=== PATIENT | female | born 1965 | race Caucasian/White ===

== ENCOUNTER 2020-06-10 09:41 | Outpatient (REF) | payer OTHER, SELFPAY ==
[2020-06-10 11:07] LABS: Cholesterol 248 mg/dL; HDL Cholesterol 59 mg/dL; LDL Cholesterol Calculated 155 mg/dl; Triglycerides 172 mg/dL
[2020-06-10 11:19] LABS: Thyroid Stimulating Hormone 0.37 uIU/mL (0.32-4.0)
== END 2020-06-10 09:42 | disposition home or self-care (01) ==
LOC: HO.LAB 09:41
PROVIDERS: PCP Internal Medicine; Visit Provider Internal Medicine
DX: E03.9 Hypothyroidism, unspecified (principal)
CPT/HCPCS: 36415; 80061; 84443

== ENCOUNTER → 2020-09-17 12:55 | Outpatient (BNVA) | payer OTHER, SELFPAY | PROVIDERS: PCP Internal Medicine; Visit Provider Physician Assistant ==

== ENCOUNTER 2020-10-29 09:40 | Day surgery (SDC) | payer BC, SELFPAY ==
[2020-10-22 12:04] VITALS: BMI 31.0
--- NOTE | 2020-10-27 14:32 | P.CONAN_ITS ---
Documented by User: Narcisa Zapien 10/27/20 14:32 HPI - Anesthesia Eval Consult details Narrative: 54yo F for Colonoscopy PMFSH Active Problems Active Problems: All Active Problems (Updated 10/22/20 @ 12:07 by Amrita Sarmiento) Tubular adenoma (Acute) Hyperlipidemia (Acute) Past Medical History Medical History COVID-19 vaccine administered GERD (gastroesophageal reflux disease) History of COVID-19 History of postoperative nausea and vomiting Hyperlipidemia Thyroid disease Tubular adenoma Family History Family History Father Diabetes Mother Pancreatic cancer Brother No problems noted. Son No problems noted. Surgical History Surgical History H/O colonoscopy H/O umbilical hernia repair History of cholecystectomy Social History Social History Household Members: Spouse Household Members Other:: 2 sons- Are you a primary home care physical therapist to a significant other at home: No Do you presently have visiting nurse or other home services: No Alcohol intake: current Alcohol intake frequency: holidays/special occasions only Patient Tobacco Use Status: Former Tobacco user Quit Date: 2000 Tobacco use type: Cigarette Use of substances other than those prescribed or required for medical reasons: No Have you been hit, kicked, punched, or otherwise hurt by someone within the past year? 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 Allergy/AdvReac Type Severity Reaction Status Date / Time Sulfa (Sulfonamide Allergy Severe rash/facial Verified 10/29/20 09:57 Antibiotics) swelling & [SULFA (SULFONAMIDE redness/difficulty ANTIBIOTICS)] breathing Home Medications Medication Instructions Recorded Confirmed Last Taken Type cyclobenzaprine 5 mg tablet 5 mg PO TID PRN 09/17/20 10/22/20 Unknown History Exam Exam Date and Time: October 27, 2020 1432 Height,Weight and Vital Signs: Height 5 ft 7 in Weight 89.811 kg Assessment and Plan Assessment Anesthesia Assessment: Chart Reviewed Documented by User: Moe Deluca 10/29/20 10:21 PMFSH Past Medical History Medical History COVID-19 vaccine administered GERD (gastroesophageal reflux disease) History of COVID-19 History of postoperative nausea and vomiting Hyperlipidemia Thyroid disease Tubular adenoma Family History Family History Father Diabetes Mother Pancreatic cancer Brother No problems noted. Son No problems noted. Surgical History Surgical History H/O colonoscopy H/O umbilical hernia repair History of cholecystectomy Social History Social History Household Members: Spouse Household Members Other:: 2 sons- Are you a primary home care physical therapist to a significant other at home: No Do you presently have visiting nurse or other home services: No Alcohol intake: current Alcohol intake frequency: holidays/special occasions only Patient Tobacco Use Status: Former Tobacco user Quit Date: 2000 Tobacco use type: Cigarette Use of substances other than those prescribed or required for medical reasons: No Have you been hit, kicked, punched, or otherwise hurt by someone within the past year? 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
[2020-10-29 10:14] VITALS: BP 146/91; PULSE 78; RESP 18; TEMP 36.1; O2SAT 97
--- NOTE | 2020-10-29 10:21 | HO.ANESPROP2 ---
FORM[facility]LY [facility] Active Problems Active Problems: All Active Problems (Updated 10/22/20 @ 12:07 by Amrita Sarmiento) Tubular adenoma (Acute) Hyperlipidemia (Acute) Past Medical History Medical History COVID-19 vaccine administered GERD (gastroesophageal reflux disease) History of COVID-19 History of postoperative nausea and vomiting Hyperlipidemia Thyroid disease Tubular adenoma Family History Family History Father Diabetes Mother Pancreatic cancer Brother No problems noted. Son No problems noted. Surgical History Surgical History H/O colonoscopy H/O umbilical hernia repair History of cholecystectomy Social History Social History Household Members: Spouse Household Members Other:: 2 sons- Are you a primary childcare center administrator to a significant other at home: No Do you presently have visiting nurse or other home services: No Alcohol intake: current Alcohol intake frequency: holidays/special occasions only Patient Tobacco Use Status: Former Tobacco user Quit Date: 2000 Tobacco use type: Cigarette Use of substances other than those prescribed or required for medical reasons: No Have you been hit, kicked, punched, or otherwise hurt by someone within the past year? 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 Allergy/AdvReac Type Severity Reaction Status Date / Time Sulfa (Sulfonamide Allergy Severe rash/facial Verified 10/29/20 09:57 Antibiotics) swelling & [SULFA (SULFONAMIDE redness/difficulty ANTIBIOTICS)] breathing Active Medications: Current Medications Generic Name Dose Route Start Last Admin Trade Name Freq PRN Reason Stop Dose Admin Lactated Ringer's 1,000 mls @ 100 mls/hr 10/29/20 10:00 Lr IVCONT .Q10H [facility] Home Medications Medication Instructions Recorded Confirmed Last Taken Type cyclobenzaprine 5 mg tablet 5 mg PO TID PRN 09/17/20 10/22/20 Unknown History Exam Exam Date and Time: October 29, 2020 1021 Height,Weight and Vital Signs: Height 5 ft 7 in Weight 89.811 kg Last Vital Signs Temp 97.0 F 10/29/20 10:14 Pulse 78 10/29/20 10:14 Resp 18 10/29/20 10:14 BP 146/91 H 10/29/20 10:14 Pulse Ox 97 10/29/20 10:14 Airway Mallampati Class: II TM Dist: >3cm Neck ROM: Full
[2020-10-29] MEDS: Lactated Ringers 1,000 ML 100 ML IVCONT (10:25)
--- NOTE | 2020-10-29 10:31 | MHC.SHP ---
Pre-Procedural Eval Section B Chief Complaint: tubular adenoma Relevant Family History (Specify if Yes): No Relevant Social History: None (ex smoker) Present Medications: see Short Stay Collaborative assessment Medical History: Significant History (COVID-19 vaccine administered GERD (gastroesophageal reflux disease) History of COVID-19 History of postoperative nausea and vomiting Hyperlipidemia Thyroid disease Tubular adenoma) History of Previous Operations: Relevant previous surgery/procedure and date(s) (H/O colonoscopy H/O umbilical hernia repair History of cholecystectomy) Allergies: Allergies Allergy/AdvReac Type Severity Reaction Status Date / Time Sulfa (Sulfonamide Allergy Severe rash/facial Verified 10/29/20 09:57 Antibiotics) swelling & [SULFA (SULFONAMIDE redness/difficulty ANTIBIOTICS)] breathing Review of Systems Sugical H&P ROS: Negative: Constitution, Cardiovascular, Respiratory, Neurological, Psychiatric, Hem-Onc, Allergic/Immunologic, Gastrointestinal, Genitourinary, Musculoskeletal, Integumentary, Endocrine and Eyes/Ears/Nose/Throat Exam Surgical H&P Exam: Normal: HEENT, Normal: Heart, Normal: Lungs, Normal: Extremities, Normal: Abdomen and Normal: Neurological and Significant Findings: Skin (sun damaged skin) Plan Diagnosis/Plan: Unchanged I have reviewed the history and physical and performed a pertinent physical examination on my patient. No changes have occurred unless specified.
--- NOTE | 2020-10-29 10:34 | PM.OP ---
Brief Operative Note Date of Service: 10/29/20 Pre-op diagnosis: hx of polyps Post-op diagnosis: same Procedure: see op note Surgeon: Dhara Perez MD Anesthesia: MAC Was an Filament W[employer] Fabricator used for this Procedure?: No Estimated blood loss (mL): 0 Condition: stable Disposition: PACU
--- NOTE | 2020-10-29 10:35 | P.OP_ITS ---
Operative Note Operative Note Date of Service: 10/29/20 Narrative: Operative Information Procedure Description: Colonoscopy COLONOSCOPY Instrument: Olympus variable stiffness pediatric scope 190L Colonoscopy Monitoring: Vital signs and clinical assessment, continuous EKG monitoring, Pulse oximetry, Carbon Dioxide monitoring and blood pressure monitoring were done throughout the procedure. Colon withdrawal time was 10 minutes. Procedure: The patient was placed in the left lateral decubitis position and pre-procedure medications were administered. After a digital rectal examination of the ano-rectum, the video colonoscope was inserted into the rectum and advanced through the colon to the cecum/TI. The colonoscope was slowly withdrawn in a retrograde panoramic fashion and the colon mucosa was carefully examined including a retroflexed view of the rectum. Findings and interventions are described below. Procedure Difficulty:easy Findings: Terminal Ileum-normal Cecum:normal, retroflexion normal as well Ascending Colon: normal Transverse Colon -normal Descending Colon:normal Sigmoid Colon: mild diverticulosis noted Rectum: Retroflexion with small internal hemorrhoids, grade I Anorectum - normal Colon preparation: Cummings Bowel Preparation Scale Right colon; 2 Transverse colon: 3 Left colon; 2 (0 = Unprepared colon segment with mucosa not seen due to solid stool that cannot be cleared. 1 = Portion of mucosa of the colon segment seen, but other areas of the colon segment not well seen due to staining, residual stool and/or opaque liquid. 2 = Minor amount of residual staining, small fragments of stool and/or opaque liquid, but mucosa of colon segment seen well. 3 = Entire mucosa of colon segment seen well with no residual staining, small fragments of stool or opaque liquid) Impression and Post Procedure Diagnosis: internal hemorrhoids diverticular disease Plan: High fiber diet leaflet Avoid straining at stool, epsom salts and sitz bath, anusol supps or cream as needed Repeat Colonoscopy in 5 years due to hx of polyps or earlier if clinically indicated Above findings were reviewed with the patient and relevant handouts were provided if indicated.
[2020-10-29 11:10] VITALS: BP 139/77; PULSE 80; RESP 14; TEMP 36.3; O2SAT 98
[2020-10-29 11:25] VITALS: BP 122/72; PULSE 62; RESP 18; O2SAT 97
== END 2020-10-29 12:00 | disposition home or self-care (01) ==
PROVIDERS: Visit Provider Internal Medicine Gastroenterology
PROC: 0DJD8ZZ Inspection of Lower Intestinal Tract, Via Natural or Artificial Opening Endoscopic (ICD-10-PCS; CPT 45378; principal; 2020-10-29 11:00)
DX: Z12.11 Encounter for screening for malignant neoplasm of colon (principal); Z86.010 Personal history of colon polyps; K57.30 Diverticulosis of large intestine without perforation or abscess without bleeding; K64.0 First degree hemorrhoids; K21.9 Gastro-esophageal reflux disease without esophagitis; Z79.899 Other long term (current) drug therapy; Z88.2 Allergy status to sulfonamides; Z90.49 Acquired absence of other specified parts of digestive tract; Z87.891 Personal history of nicotine dependence
CPT/HCPCS: 45378

== ENCOUNTER → 2020-11-09 09:08 | Outpatient (BNVA) | payer BC, SELFPAY | PROVIDERS: PCP Internal Medicine; Visit Provider Physician Assistant ==

== ENCOUNTER 2021-02-12 07:23 | Outpatient (REF) | payer BC, SELFPAY ==
[2021-02-12 10:01] LABS: Cholesterol 156 mg/dL; HDL Cholesterol 57 mg/dL; LDL Cholesterol Calculated 78 mg/dl; Triglycerides 105 mg/dL
== END 2021-02-12 07:24 | disposition home or self-care (01) ==
LOC: HO.LAB 07:23
PROVIDERS: PCP Internal Medicine; Visit Provider Internal Medicine
DX: E11.9 Type 2 diabetes mellitus without complications (principal); E03.9 Hypothyroidism, unspecified
CPT/HCPCS: 36415; 80061; 84443

== ENCOUNTER 2021-05-17 13:16 | Outpatient (REF) | payer BC, SELFPAY ==
--- NOTE | ~2021-05-17 | MM_ITS ---
EXAMINATION: MM SCREENING DIGITAL BREAST TOMOSYNTHESIS, BILATERAL CLINICAL INFORMATION: Screening. Asymptomatic. The lifetime risk of breast cancer based on the Tyrer-Cuzick Model is 10%. COMPARISON: Mammography: 12/06/2018, 08/11/2017, 04/21/2015 TECHNIQUE: Digital breast tomosynthesis is performed in both the craniocaudal and mediolateral oblique views along with computer-aided detection (CAD). Synthesized 2D images are generated from the tomosynthesis. FINDINGS: There are scattered areas of fibroglandular density (ACR BI-RADS breast composition Category b). There are no significant masses, abnormal calcifications, or other abnormalities. Parenchymal pattern is similar to prior studies. There is no developing density or architectural abnormality. The axilla and skin contours are unremarkable. No significant changes. MM/MM tomosynthesis screening BI IMPRESSION: No mammographic evidence of malignancy. ASSESSMENT: BI-RADS 1: Negative RECOMMENDATION: Routine annual mammography screening. This patient's information was entered into a reminder system with a target due date for their next mammogram.
== END 2021-05-17 13:17 | disposition home or self-care (01) ==
LOC: HO.MAMMO 13:16
PROVIDERS: Visit Provider Internal Medicine
DX: Z12.31 Encounter for screening mammogram for malignant neoplasm of breast (principal)
CPT/HCPCS: 77063; 77067

== ENCOUNTER 2021-08-18 07:07 | Outpatient (REF) | payer BC, SELFPAY ==
[2021-08-18 07:24] LABS: MANUAL DIFF FLAG NO
[2021-08-18 07:32] LABS: Basophils Absolute Auto 0.1 X10*3/uL (0.0-0.2); Basophils Percent Auto 0.9 % (0-2); Eosinophils Absolute Auto 0.4 X10*3/uL (0.0-0.4); Eosinophils Percent Auto 6.5 % (0-4); Hematocrit 43.7 % (37.0-47.0); Hemoglobin 13.9 g/dl (12.0-16.0); Imm Gran Abs Auto 0.01 X10*3/uL (0.00-0.03); Imm Gran Pct Auto 0.2 % (0.0-0.4); Lymphocytes Absolute Auto 1.5 X10*3/uL (1.2-4.9); Lymphocytes Percent Auto 23.7 % (20-40); Mean Corpuscular HGB Conc 31.8 g/dl (31.0-35.0); Mean Corpuscular Hemoglobin 28.8 pg (27.0-33.0); Mean Corpuscular Volume 90.7 fL (80.0-98.0); Mean Platelet Volume 10.7 fL (9.4-12.3); Monocytes Absolute Auto 0.5 X10*3/uL (0.1-1.2); Monocytes Percent Auto 7.6 % (2-11); Neutrophils Absolute Auto 3.9 x10*3/uL (2.0-8.3); Neutrophils Percent Auto 61.1 % (45-73); Platelet Count 304 X10*3/uL (160-400); Red Blood Count 4.82 X10*6/uL (4.20-5.50); Red Cell Distribution Width 12.5 % (11.0-16.0); White Blood Count 6.5 X10*3/uL (4.8-10.8)
[2021-08-18 08:00] LABS: Alanine Aminotransferase 18 U/L (0-31); Albumin Level 4.3 g/dL (3.5-5.0); Alkaline Phosphatase 50 U/L (39-117); Anion Gap 11 (12-20); Aspartate Amino Transferase 16 U/L (5-31); Bilirubin Total 0.7 mg/dL (0.0-1.0); Blood Urea Nitrogen 16 mg/dL (9-16); Calcium 10.2 mg/dL (8.4-10.2); Carbon Dioxide 28 mmol/L (22-29); Chloride 106 mmol/L (96-108); Cholesterol 153 mg/dL; Estimated Glomerular Filt Rate > 60; Glucose Fasting 101 mg/dL (60-99); HDL Cholesterol 53 mg/dL; LDL Cholesterol Calculated 75 mg/dl; Potassium 4.3 mmol/L (3.3-5.1); Sodium 141 mmol/L (135-145); Triglycerides 129 mg/dL
[2021-08-18 08:23] LABS: Thyroid Stimulating Hormone 1.16 uIU/mL (0.32-4.0)
== END 2021-08-18 07:08 | disposition home or self-care (01) ==
LOC: HO.LAB 07:07
PROVIDERS: PCP Internal Medicine; Visit Provider Internal Medicine
DX: Z00.00 Encounter for general adult medical examination without abnormal findings (principal); E03.9 Hypothyroidism, unspecified; E11.9 Type 2 diabetes mellitus without complications
CPT/HCPCS: 36415; 80053; 80061; 84443; 85025

== ENCOUNTER 2022-02-14 07:04 | Outpatient (REF) | payer BC, SELFPAY ==
[2022-02-14 08:32] LABS: Thyroid Stimulating Hormone 0.29 uIU/mL (0.32-4.0)
== END 2022-02-14 07:05 | disposition home or self-care (01) ==
LOC: HO.LAB 07:04
PROVIDERS: PCP Internal Medicine; Visit Provider Internal Medicine
DX: Z00.00 Encounter for general adult medical examination without abnormal findings (principal)
CPT/HCPCS: 36415; 84443

== ENCOUNTER 2022-05-18 13:34 | Outpatient (REF) | payer BC, SELFPAY | END 2022-05-18 13:35 | disposition home or self-care (01) | LOC: HO.MAMMO 13:34 | PROVIDERS: PCP Internal Medicine; Visit Provider Internal Medicine | DX: Z12.31 Encounter for screening mammogram for malignant neoplasm of breast (principal) | CPT/HCPCS: 77063; 77067 ==

== ENCOUNTER 2022-05-26 08:28 | Outpatient (REF) | payer BC, SELFPAY ==
--- NOTE | ~2022-05-26 | MM_ITS ---
EXAMINATION: MM DIAGNOSTIC DIGITAL BREAST TOMOSYNTHESIS, LEFT CLINICAL INFORMATION: Left breast nodular density upper outer aspect. COMPARISON: Mammography: 05/18/2022 and studies dating back to 04/21/2015. TECHNIQUE: Digital breast tomosynthesis is performed. 2D images are generated from the tomosynthesis. The following views are obtained: Spot compression craniocaudal and mediolateral oblique views. FINDINGS: The breasts are heterogeneously dense, which may obscure small masses (ACR BI-RADS breast composition Category c). Additional images demonstrate effacement of the nodular density with an underlying background of nodular parenchyma. Recommend 6 month follow-up left breast mammogram. Results are discussed with the patient at time of visit. MM/MM tomosynthesis added views L IMPRESSION: Near-complete effacement nodular density left breast with underlying nodular parenchyma. Recommend 6 month follow-up left breast mammogram. ASSESSMENT: BI-RADS 3: Probably benign. RECOMMENDATION: Diagnostic mammography in 6 months. This patient's information was entered into a reminder system with a target due date for their next mammogram.
== END 2022-05-26 08:29 | disposition home or self-care (01) ==
LOC: HO.MAMMO 08:28
PROVIDERS: PCP Internal Medicine; Visit Provider Internal Medicine
DX: R92.2 Inconclusive mammogram (principal)
CPT/HCPCS: 77061; 77065

== ENCOUNTER 2022-07-15 06:59 | Outpatient (REF) | payer BC, SELFPAY ==
[2022-07-15 08:17] LABS: Cholesterol 151 mg/dL; HDL Cholesterol 54 mg/dL; LDL Cholesterol Calculated 79 mg/dl; Triglycerides 94 mg/dL
[2022-07-15 08:26] LABS: Thyroid Stimulating Hormone 0.21 uIU/mL (0.32-4.0)
== END 2022-07-15 07:00 | disposition home or self-care (01) ==
LOC: HO.LAB 06:59
PROVIDERS: PCP Internal Medicine; Visit Provider Internal Medicine
DX: E03.9 Hypothyroidism, unspecified (principal); E78.5 Hyperlipidemia, unspecified
CPT/HCPCS: 36415; 80061; 84443

== ENCOUNTER 2022-11-22 14:47 | Outpatient (REF) | payer BC, SELFPAY ==
--- NOTE | ~2022-11-22 | MM_ITS ---
EXAMINATION: MM DIAGNOSTIC DIGITAL BREAST TOMOSYNTHESIS, LEFT CLINICAL INFORMATION: Short interval follow-up probable benign fibronodular asymmetries central left breast initially noted on screening mammography 05/18/2022. The lifetime risk of breast cancer based on the Tyrer-Cuzick Model is 9%. COMPARISON: Prior mammography exams including most recent 05/26/2022. TECHNIQUE: Digital breast tomosynthesis is performed in both the craniocaudal and mediolateral oblique views along with computer-aided detection (CAD). Synthesized 2D images are generated from the tomosynthesis. FINDINGS: There are scattered areas of fibroglandular density (ACR BI-RADS breast composition Category b). There is fine fibronodular parenchymal pattern similar to prior exams. Borderline nodular asymmetry central left breast on CC view is stable. No three-dimensional correlate appreciated. No developing density or architectural abnormality. The axilla and skin contours are unremarkable. Results are provided to the patient at time of visit by the technologist. MM/MM tomosynthesis diagnostic LT IMPRESSION: -No significant changes from prior exam. ASSESSMENT: BI-RADS 3: Probably Benign RECOMMENDATION: Diagnostic mammography at time of annual bilateral mammography, due in 6 months. This patient's information was entered into a reminder system with a target due date for their next mammogram.
== END 2022-11-22 14:48 | disposition home or self-care (01) ==
LOC: HO.MAMMO 14:47
PROVIDERS: Visit Provider Internal Medicine
DX: R92.2 Inconclusive mammogram (principal)
CPT/HCPCS: 77061; 77065

== ENCOUNTER 2023-01-13 07:04 | Outpatient (REF) | payer BC, SELFPAY ==
[2023-01-13 07:39] LABS: Basophils Absolute Auto 0.1 X10*3/uL (0.0-0.2); Basophils Percent Auto 1.3 % (0-2); Eosinophils Absolute Auto 0.4 X10*3/uL (0.0-0.4); Hematocrit 43.6 % (37.0-47.0); Hemoglobin 14.5 g/dl (12.0-16.0); Imm Gran Abs Auto 0.04 X10*3/uL (0.00-0.03); Imm Gran Pct Auto 0.5 % (0.0-0.4); Lymphocytes Absolute Auto 1.7 X10*3/uL (1.2-4.9); Lymphocytes Percent Auto 19.9 % (20-40); MANUAL DIFF FLAG NO; Mean Corpuscular HGB Conc 33.3 g/dl (31.0-35.0); Mean Corpuscular Hemoglobin 29.5 pg (27.0-33.0); Mean Corpuscular Volume 88.8 fL (80.0-98.0); Mean Platelet Volume 10.9 fL (9.4-12.3); Monocytes Absolute Auto 0.7 X10*3/uL (0.1-1.2); Monocytes Percent Auto 7.6 % (2-11); Neutrophils Absolute Auto 5.6 x10*3/uL (2.0-8.3); Neutrophils Percent Auto 65.7 % (45-73); Platelet Count 323 X10*3/uL (160-400); Red Blood Count 4.91 X10*6/uL (4.20-5.50); Red Cell Distribution Width 12.7 % (11.0-16.0); White Blood Count 8.6 X10*3/uL (4.8-10.8)
[2023-01-13 07:58] LABS: Alanine Aminotransferase 11 U/L (0-31); Albumin Level 4.4 g/dL (3.5-5.0); Alkaline Phosphatase 52 U/L (39-117); Anion Gap 12 (12-20); Aspartate Amino Transferase 15 U/L (5-31); Bilirubin Total 0.7 mg/dL (0.0-1.0); Blood Urea Nitrogen 20 mg/dL (9-16); Calcium 10.2 mg/dL (8.4-10.2); Carbon Dioxide 26 mmol/L (22-29); Chloride 109 mmol/L (96-108); Cholesterol 170 mg/dL; Estimated Glomerular Filt Rate > 60; Glucose Fasting 98 mg/dL (60-99); HDL Cholesterol 56 mg/dL; LDL Cholesterol Calculated 91 mg/dl; Potassium 4.1 mmol/L (3.3-5.1); Sodium 143 mmol/L (135-145); Total Protein 7.5 g/dL (6.5-8.0); Triglycerides 119 mg/dL
== END 2023-01-13 07:05 | disposition home or self-care (01) ==
LOC: HO.LAB 07:04
PROVIDERS: PCP Internal Medicine; Visit Provider Internal Medicine
DX: E03.9 Hypothyroidism, unspecified (principal); E78.5 Hyperlipidemia, unspecified; N28.9 Disorder of kidney and ureter, unspecified; D64.9 Anemia, unspecified
CPT/HCPCS: 36415; 80053; 80061; 84443; 85025

== ENCOUNTER 2023-01-18 09:02 | Outpatient (AMB) | payer BC, SELFPAY ==
--- NOTE | 2023-01-18 08:59 | MHC.PC.OV ---
Intake Visit Reasons: 6mth f/u/Android/[phone] Intake Note: Patient is here to follow up on Hyperlipidemia, Hypothyroidism. Requesting lab results Transitional Care Manager Required: No Record Center Coordinator: Not Required per policy Accompanied by: Self / Same As Patient Allergies Sulfa (Sulfonamide Antibiotics) [SULFA (SULFONAMIDE ANTIBIOTICS)] Allergy (Severe, Verified 01/18/23 09:01) rash/facial swelling & redness/difficulty breathing Medication List - Last Reconciled 01/18/23 by Irvin Dougherty MD atorvastatin 20 mg PO DAILY cyclobenzaprine 5 mg PO TID PRN levothyroxine 137 mcg PO DAILY Tobacco use date assessed: 07/20/22 Dental Screening Dental Screen Date: 01/18/23 Did you have a dental visit in the last 12 months?: Yes Did you have a dental problem in the last 6 months where you did not have access to dental care?: No Was dental information given to patient?: Patient has dentist HPI 6mth f/u/[place]/[phone] HPI Details hyperlipidemia and hypothyroidism on rx; some chest pain past 6 months FOR[facility]LY [facility] Medical History (Updated 03/10/22 @ 13:02 by Marco Rivero PA-C) COVID-19 vaccine administered GERD (gastroesophageal reflux disease) History of adenomatous polyp of colon History of COVID-19 History of postoperative nausea and vomiting Hyperlipidemia Hypothyroidism Thyroid disease Tubular adenoma Surgical History H/O colonoscopy H/O umbilical hernia repair History of cholecystectomy Family History Father Diabetes Mother Pancreatic cancer Brother No problems noted. Son No problems noted. 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 Homer Golden, Coretta Geronimo, Ward Florez and colleagues, with an educational bryn from [employer]. Review of Systems Const Denies chills, Denies headache(s) and Denies weight loss ENT Denies headache(s) Card Denies syncope, Denies irregular heart rhythm and Denies dyspnea Resp Denies chest congestion, Denies cough and Denies dyspnea GI Denies abdominal pain, Denies change in stool character, Denies nausea and Denies vomiting Musc Denies deformity and Denies joint swelling Neuro Denies syncope and Denies headache(s) Physical exam (Primary Care) Tobacco/Smoking Status: Tobacco use Status Tobacco use date assessed 07/20/22 01/18/23 09:02 Patient Tobacco Use Status Former Tobacco user 01/18/23 09:02 Tobacco use type Cigarette 01/18/23 09:02 e-Cigarette/Vaping Use Never Used 01/18/23 09:02 Thrive Assessment: Date of Thrive Assessment Date Thrive assessed 07/20/22 01/18/23 09:02 Telehealth Telehealth Location of provider rendering services: practice address Location of patient: address on file Patient Identification confirmed using: Name, : Yes Telehealth method: voice only Patient verbally consented to treatment: Yes Patient verbally consented to billing insurance company: Yes Patient informed of any privacy concerns related to visit: Yes Minutes spent on Phone/Video with Pt.: 15 (telephone) Assessment and Plan Assessment & Plan (1) Hypothyroidism: Code(s): E03.9 - Hypothyroidism, unspecified Plan: stable; same meds (2) Hyperlipidemia: Code(s): E78.5 - Hyperlipidemia, unspecified Plan: stable; same meds (3) Chest pain: Code(s): R07.9 - Chest pain, unspecified Plan: see in office Coding Level of Care Code Tele Est Pt Level 3 (35257) Diagnoses Hypothyroidism E03.9 Hyperlipidemia E78.5 Chest pain R07.9
== END 2023-01-18 10:01 | disposition home or self-care (01) ==
LOC: HO.HMGH 09:02
PROVIDERS: PCP Internal Medicine; Visit Provider Internal Medicine
DX: E03.9 Hypothyroidism, unspecified (principal); E78.5 Hyperlipidemia, unspecified; R07.9 Chest pain, unspecified
CPT/HCPCS: 99442

== ENCOUNTER 2023-02-01 08:44 | Outpatient (AMB) | payer BC, SELFPAY ==
[2023-02-01 08:46] VITALS: BP 136/72; PULSE 75; O2SAT 98; BMI 29.9
--- NOTE | 2023-02-01 08:46 | MHC.PC.OV ---
Vital Signs 02/01/23 08:46 Height 5 ft 7 in Weight 191 lb BMI 29.9 BP 136/72 Blood Pressure Location Lt brachial Position Sitting Pulse 75 Pulse Source Pulse Oximeter Pulse Oximetry (%) 98 Oxygen Delivery Method Room Air Intake Visit Reasons: follow up from phone visit 01/18 [employer] Exchange Administrator: Not Required per policy Accompanied by: Self / Same As Patient Allergies Sulfa (Sulfonamide Antibiotics) [SULFA (SULFONAMIDE ANTIBIOTICS)] Allergy (Severe, Verified 02/01/23 08:47) rash/facial swelling & redness/difficulty breathing Medication List - Last Reconciled 02/01/23 by Irvin Dougherty MD atorvastatin 20 mg PO DAILY cyclobenzaprine 5 mg PO TID PRN levothyroxine 137 mcg PO DAILY Tobacco use date assessed: 07/20/22 Dental Screening Dental Screen Date: 02/01/23 Did you have a dental visit in the last 12 months?: Yes Did you have a dental problem in the last 6 months where you did not have access to dental care?: No Was dental information given to patient?: Patient has dentist HPI follow up from phone visit 01/18 HPI Details right sided chest pain radiating to jaw and right arm; intermittent for a year [facility] Medical History COVID-19 vaccine administered GERD (gastroesophageal reflux disease) History of adenomatous polyp of colon History of COVID-19 History of postoperative nausea and vomiting Hyperlipidemia Hypothyroidism Thyroid disease Tubular adenoma Surgical History H/O colonoscopy H/O umbilical hernia repair History of cholecystectomy Family History Father Diabetes Mother Pancreatic cancer Brother No problems noted. Son No problems noted. 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 1. Little interest or pleasure in doing things: not at all 2. Feeling down, depressed, or hopeless: not at all 3. Trouble falling or staying asleep, or sleeping too much: not at all 4. Feeling tired or having little energy: not at all 5. Poor appetite or overeating: not at all 6. Feeling bad about yourself - or that you are a failure or have let yourself or your family down: not at all 7. Trouble concentrating on things, such as reading the newspaper or watching television: not at all 8. Moving or speaking so slowly that other people could have noticed. Or the opposite - being so fidgety or restless that you have been moving around a lot more than usual: not at all 9. Thoughts that you would be better off or of hurting yourself in some way: not at all Total score: 0 Depression Screening Interpretation: Negative Source: Developed by Drs. Homer Golden, Coretta Geronimo, Ward Florez and colleagues, with an educational bryn from [employer]. Thrive Questionnaire Date Thrive assessed: 07/20/22 Currently or been in a relationship where the following occur: no concerns reported AUDIT C Alcohol Use Questionnaire (AUDIT-C) 1. How often do you have a drink containing alcohol?: 2-4 times a month 2. How many drinks containing alcohol do you have on a typical day when you are drinking?: 3 or 4 Total Score: 3 Score Reviewed/Action Taken: Yes ALEX-7 AMB Questionnaire ALEX-7 Date ALEX - 7 assessed: 07/20/22 Source: Developed by Drs. Homer Golden, Coretta Geronimo, Ward Florez and colleagues, with an educational bryn from [employer]. Review of Systems Const Denies chills, Denies headache(s) and Denies weight loss ENT Denies headache(s) Card Denies syncope, Denies irregular heart rhythm and Denies dyspnea Resp Denies chest congestion, Denies cough and Denies dyspnea GI Denies abdominal pain, Denies change in stool character, Denies nausea and Denies vomiting Musc Denies deformity and Denies joint swelling Neuro Denies syncope and Denies headache(s) Physical exam (Primary Care) Vital Signs: Last Vital Signs Pulse 75 02/01/23 08:46 BP 136/72 02/01/23 08:46 Pulse Ox 98 02/01/23 08:46 Oxygen Delivery Method Room Air 02/01/23 08:46 BMI result Body Mass Index 29.9 Tobacco/Smoking Status: Tobacco use Status Tobacco use date assessed 07/20/22 02/01/23 08:51 Patient Tobacco Use Status Former Tobacco user 02/01/23 08:51 Tobacco use type Cigarette 02/01/23 08:51 e-Cigarette/Vaping Use Never Used 02/01/23 08:51 PHQ-9: PHQ-9 Score PHQ-9: Total score 0 02/01/23 08:51 Depression Screening Interpretation: Negative Thrive Assessment: Date of Thrive Assessment Date Thrive assessed 07/20/22 02/01/23 08:51 Currently or been in a relationship where the following occur: no concerns reported Const General: cooperative, comfortable and no acute distress Neck Neck: Yes normal visual inspection Chest Chest palpation & inspection: normal inspection of the chest Resp Effort & Inspection: normal respiratory effort Auscultation: clear to auscultation bilaterally Percussion: percussion normal Cardio Jugular venous distension: no JVD Rate: regular rate Rhythm: regular rhythm GI Inspection: Yes normal to inspection Assessment and Plan Assessment & Plan (1) Chest pain: Code(s): R07.9 - Chest pain, unspecified Plan: ekg and stress test Orders: Orders CA stress test Today R07.9 - Chest pain, unspecified ECG 12 lead EKG Today R07.9 - Chest pain, unspecified Coding Level of Care Code Est Pt Level 3 (20164) Diagnoses Chest pain R07.9 Additional Codes PHQ-9 - 96120 - PHQ-9 Billing: Y ([id number])
== END 2023-02-01 09:05 | disposition home or self-care (01) ==
PROVIDERS: PCP Internal Medicine; Visit Provider Internal Medicine
DX: R07.9 Chest pain, unspecified (principal)
CPT/HCPCS: 99213

== ENCOUNTER → 2023-02-03 07:09 | Outpatient (REF) | payer BC, SELFPAY ==
--- NOTE | 2023-02-03 07:13 | ECG_ITS ---
Test Reason : cp Blood Pressure : / mmHG Vent. Rate : 066 BPM Atrial Rate : 066 BPM P-R Int : 146 ms QRS Dur : 092 ms QT Int : 412 ms P-R-T Axes : 016 032 045 degrees QTc Int : 431 ms Normal sinus rhythm Normal ECG No previous ECGs available Referred By: Irvin Dougherty Electronically Signed By:ALEX PAUL
== END ==
LOC: HO.CARD 07:09
PROVIDERS: PCP Internal Medicine; Visit Provider Internal Medicine
DX: R07.9 Chest pain, unspecified (principal)
CPT/HCPCS: 93005

== ENCOUNTER → 2023-02-09 09:56 | Outpatient (REF) | payer BC, SELFPAY ==
--- NOTE | 2023-02-09 09:58 | CA_ITS ---
Acquisition Time: 2023-02-09 10:10:19 Total Exercise Time: 00:08:59 Test Indications: CHEST PAIN Medications: Protocol: UNIQUE Max HR: 164 BPM 101% of Pred: 162 BPM Max BP: 150/082 mmHG Max Work Load: 10.1 METS Exercise stress test exercise 8 min 59 sec of Unique protocol achieving 101% MPHR, without anginal symptoms, without arrhythmias, with noromotensive response to exercise, without EKG changes. Test reviewed with Dr. Ryan. Referred By: Irvin Dougherty Overread By: JANE RAYMOND
== END ==
LOC: HO.CARD 09:56
PROVIDERS: Visit Provider Internal Medicine
DX: R07.9 Chest pain, unspecified (principal)
CPT/HCPCS: 93017

== ENCOUNTER → 2023-02-09 09:58 | Outpatient (BNV) | payer BC, SELFPAY | PROVIDERS: Visit Provider Internal Medicine | DX: R07.9 Chest pain, unspecified (principal) | CPT/HCPCS: 93016; 93018 ==

== ENCOUNTER 2023-06-14 11:16 | Outpatient (REF) | payer BC, SELFPAY ==
--- NOTE | ~2023-06-14 | MM_ITS ---
EXAMINATION: MM DIAGNOSTIC DIGITAL BREAST TOMOSYNTHESIS, BILATERAL CLINICAL INFORMATION: 6 month Follow-up (second) one view small asymmetry central left breast seen on CC view only without definite MLO correlate. This has been stable since 05/18/2022. COMPARISON: Mammography: 11/22/2022, 05/26/2022, 05/18/2022 (BI-RADS 0), 05/17/2021, and dating back to 2014. TECHNIQUE: Digital breast tomosynthesis is performed in both the craniocaudal and mediolateral oblique views along with computer-aided detection (CAD). Synthesized 2D images are generated from the tomosynthesis. FINDINGS: There are scattered areas of fibroglandular density (ACR BI-RADS breast composition Category b). The extremely subtle central one view asymmetry in the left breast seen on the CC projection is again noted, without definite MLO correlate.It is stable in appearance and size since 1 year prior. This has features consistent with a benign entity, and further follow-up is deemed not necessary. Otherwise there are no suspicious masses, suspicious grouped calcifications, or areas of architectural distortion in either breast. The parenchymal pattern is stable from prior exams. MM/MM tomosynthesis diagnostic BI IMPRESSION: There are no significant changes from prior study. No findings suspicious for malignancy in either breast. 1 view asymmetry central left breast CC projection is stable, consistent with a benign entity, and further follow-up is deemed not necessary. Recommend the patient return to routine annual screening mammography. ASSESSMENT: BI-RADS BI-RADS 2 - Benign Findings RECOMMENDATION: 1 year F/U Results were provided to the patient at time of visit by the technologist. This patient's information was entered into a reminder system with a target due date for their next mammogram.
== END 2023-06-14 11:17 | disposition home or self-care (01) ==
LOC: HO.MAMMO 11:16
PROVIDERS: PCP Internal Medicine; Visit Provider Internal Medicine
DX: R92.2 Inconclusive mammogram (principal)
CPT/HCPCS: 77062; 77066

== ENCOUNTER → 2023-06-14 11:30 | Outpatient (BNV) | payer BC, SELFPAY | PROVIDERS: PCP Internal Medicine; Visit Provider Radiology Diagnostic Radiology | DX: R92.8 Other abnormal and inconclusive findings on diagnostic imaging of breast (principal) | CPT/HCPCS: 77062; 77066 ==

== ENCOUNTER 2023-09-06 07:08 | Outpatient (REF) | payer BC, SELFPAY ==
[2023-09-06 09:02] LABS: Cholesterol 166 mg/dL (<200); HDL Cholesterol 51 mg/dL (>40); LDL Cholesterol Calculated 86 mg/dL (<100); Triglycerides 146 mg/dL (<150)
[2023-09-06 09:07] LABS: Thyroid Stimulating Hormone 1.13 uIU/mL (0.32-4.0)
== END 2023-09-06 07:09 | disposition home or self-care (01) ==
LOC: HO.LAB 07:08
PROVIDERS: PCP Internal Medicine; Visit Provider Internal Medicine
DX: E03.9 Hypothyroidism, unspecified (principal); E78.5 Hyperlipidemia, unspecified
CPT/HCPCS: 36415; 80061; 84443

== ENCOUNTER 2023-09-13 11:06 | Outpatient (AMB) | payer BC, SELFPAY ==
[2023-09-13 11:07] VITALS: BP 132/88; PULSE 64; O2SAT 99; BMI 30.5
--- NOTE | 2023-09-13 11:07 | MHC.PC.OV ---
Vital Signs 09/13/23 11:07 Height 5 ft 7 in Weight 195 lb BMI 30.5 BP 132/88 Blood Pressure Location Lt brachial Position Sitting Pulse 64 Pulse Source Pulse Oximeter Pulse Oximetry (%) 99 Oxygen Delivery Method Room Air Intake Visit Reasons: 6 month f/u Pl[employer] Weaver Required: No Allergies Sulfa (Sulfonamide Antibiotics) [SULFA (SULFONAMIDE ANTIBIOTICS)] Allergy (Severe, Verified 09/13/23 11:08) rash/facial swelling & redness/difficulty breathing Medication List - Last Reconciled 09/14/23 by Irvin Dougherty MD atorvastatin 20 mg PO DAILY cyclobenzaprine 5 mg PO TID PRN levothyroxine 137 mcg PO DAILY Tobacco use date assessed: 09/13/23 Dental Screening Dental Screen Date: 02/01/23 HPI 6 month f/u HPI Details hyperlipidemia and hypothyroidism on rx; doing well and compliant [facility] Medical History COVID-19 vaccine administered GERD (gastroesophageal reflux disease) History of adenomatous polyp of colon History of COVID-19 History of postoperative nausea and vomiting Hyperlipidemia Hypothyroidism Thyroid disease Tubular adenoma Surgical History H/O colonoscopy H/O umbilical hernia repair History of cholecystectomy Family History Father Diabetes Mother Pancreatic cancer Brother No problems noted. Son No problems noted. 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 1. Little interest or pleasure in doing things: not at all 2. Feeling down, depressed, or hopeless: not at all 3. Trouble falling or staying asleep, or sleeping too much: not at all 4. Feeling tired or having little energy: not at all 5. Poor appetite or overeating: not at all 6. Feeling bad about yourself - or that you are a failure or have let yourself or your family down: not at all 7. Trouble concentrating on things, such as reading the newspaper or watching television: not at all 8. Moving or speaking so slowly that other people could have noticed. Or the opposite - being so fidgety or restless that you have been moving around a lot more than usual: not at all 9. Thoughts that you would be better off or of hurting yourself in some way: not at all Total score: 0 Depression Screening Interpretation: Negative Depression Screening Done: Yes 72190 - PHQ-9 Billing: Yes Source: Developed by Drs. Homer Golden, Ward Badillo and colleagues, with an educational bryn from [employer]. Thrive Questionnaire Date Thrive assessed: 09/13/23 AUDIT C Alcohol Use Questionnaire (AUDIT-C) 1. How often do you have a drink containing alcohol?: 2-4 times a month 2. How many drinks containing alcohol do you have on a typical day when you are drinking?: 3 or 4 3. How often do you have six or more drinks on one occasion?: Never Total Score: 3 Score Reviewed/Action Taken: Yes ALEX-7 AMB Questionnaire ALEX-7 Date ALEX - 7 assessed: 09/13/23 Feeling nervous, anxious, or on edge: 0 = Not at all Not being able to stop or control worryin = Not at all Worrying too much about different things: 0 = Not at all Trouble relaxin = Not at all Being so restless that it is hard to sit still: 0 = Not at all Becoming easily annoyed or irritable: 0 = Not at all Feeling afraid as if something awful might happen: 0 = Not at all Total ALEX-7 score (0-4 normal; 5-9 mild; 10-14 moderate; 15-21 severe): 0 Source: Developed by Drs. Homer Golden, Ward Badillo and colleagues, with an educational bryn from [employer]. ALEX-7 Assessment Billing ALEX-7 Assessment Tool: ALEX-7 Assessment 06852 Review of Systems Const Denies chills, Denies headache(s) and Denies weight loss ENT Denies headache(s) Card Denies chest pain, Denies syncope, Denies irregular heart rhythm and Denies dyspnea Resp Denies chest congestion, Denies cough and Denies dyspnea GI Denies abdominal pain, Denies change in stool character, Denies nausea and Denies vomiting Musc Denies deformity and Denies joint swelling Neuro Denies syncope and Denies headache(s) Physical exam (Primary Care) Vital Signs: Last Vital Signs Pulse 64 09/13/23 11:07 BP 132/88 09/13/23 11:07 Pulse Ox 99 09/13/23 11:07 Oxygen Delivery Method Room Air 09/13/23 11:07 BMI result Body Mass Index 30.5 Tobacco/Smoking Status: Tobacco use Status Tobacco use date assessed 09/13/23 09/13/23 11:11 Patient Tobacco Use Status Former Tobacco user 09/13/23 11:11 Tobacco use type Cigarette 09/13/23 11:11 e-Cigarette/Vaping Use Never Used 09/13/23 11:11 PHQ-9: PHQ-9 Score PHQ-9: Total score 0 09/13/23 11:11 Depression Screening Interpretation: Negative Thrive Assessment: Date of Thrive Assessment Date Thrive assessed 09/13/23 09/13/23 11:11 Const General: cooperative, comfortable, no acute distress and alert Neck Neck: Yes no lymphadenopathy Thyroid: Thyroid normal Resp Effort & Inspection: normal respiratory effort Auscultation: clear to auscultation bilaterally Percussion: percussion normal Cardio Jugular venous distension: no JVD Palpation: normal PMI Rate: regular rate Rhythm: regular rhythm Heart sounds: S1 normal heart sound present and S2 normal heart sound present GI Inspection: Yes normal to inspection Palpation (GI): No hepatosplenomegaly present Skin General skin exam: no rashes or lesions noted Extrem General: Yes no clubbing, cyanosis or edema Assessment and Plan Assessment & Plan (1) Hypothyroidism: Code(s): E03.9 - Hypothyroidism, unspecified Plan: stable; same rx (2) Hyperlipidemia: Code(s): E78.5 - Hyperlipidemia, unspecified Plan: stable; same rx Orders: Orders Lipid Panel Today Z13.220 - Encounter for screening for lipoid disorders Complete Blood Count Auto Diff Today Z13.0 - Encounter for screening for diseases of the blood and blood-forming organs and certain disorders involving the immune mechanism Comprehensive [place]. Panel Fast Today Z13.9 - Encounter for screening, unspecified Thyroid Stimulating Hormone Today Z13.29 - Encounter for screening for other suspected endocrine disorder Coding Level of Care Code Est Pt Level 3 (96028) Diagnoses Hypothyroidism E03.9 Hyperlipidemia E78.5 Additional Codes ALEX-7 Assessment Billing - ALEX-7 Assessment Tool: ALEX-7 Assessment 16014 ([id number])
== END 2023-09-13 11:21 | disposition home or self-care (01) ==
PROVIDERS: PCP Internal Medicine; Visit Provider Internal Medicine
DX: E03.9 Hypothyroidism, unspecified (principal); E78.5 Hyperlipidemia, unspecified
CPT/HCPCS: 99213

== ENCOUNTER 2024-03-22 07:02 | Outpatient (REF) | payer BC, SELFPAY ==
[2024-03-22 07:18] LABS: MANUAL DIFF FLAG NO
[2024-03-22 07:51] LABS: Basophils Absolute Auto 0.1 X10*3/uL (0.0-0.2); Basophils Percent Auto 1.2 % (0-2); Eosinophils Absolute Auto 0.3 X10*3/uL (0.0-0.4); Eosinophils Percent Auto 4.4 % (0-4); Hematocrit 41.9 % (37.0-47.0); Hemoglobin 13.9 g/dl (12.0-16.0); Imm Gran Abs Auto 0.02 X10*3/uL (0.00-0.03); Imm Gran Pct Auto 0.3 % (0.0-0.4); Lymphocytes Absolute Auto 1.8 X10*3/uL (1.2-4.9); Lymphocytes Percent Auto 22.9 % (20-40); Mean Corpuscular HGB Conc 33.2 g/dl (31.0-35.0); Mean Corpuscular Hemoglobin 29.9 pg (27.0-33.0); Mean Corpuscular Volume 90.1 fL (80.0-98.0); Mean Platelet Volume 10.8 fL (9.4-12.3); Monocytes Absolute Auto 0.6 X10*3/uL (0.1-1.2); Monocytes Percent Auto 7.9 % (2-11); Neutrophils Absolute Auto 4.9 x10*3/uL (2.0-8.3); Neutrophils Percent Auto 63.3 % (45-73); Platelet Count 283 X10*3/uL (160-400); Red Blood Count 4.65 X10*6/uL (4.20-5.50); Red Cell Distribution Width 12.6 % (11.0-16.0); White Blood Count 7.7 X10*3/uL (4.8-10.8)
[2024-03-22 08:26] LABS: Alanine Aminotransferase 25 U/L (0-31); Albumin Level 4.2 g/dL (3.5-5.0); Alkaline Phosphatase 50 U/L (39-117); Anion Gap 12 (12-20); Aspartate Amino Transferase 21 U/L (5-31); Bilirubin Total 0.6 mg/dL (0.0-1.0); Blood Urea Nitrogen 23 mg/dL (9-16); Calcium 9.8 mg/dL (8.4-10.2); Carbon Dioxide 24 mmol/L (22-29); Chloride 110 mmol/L (96-108); Cholesterol 181 mg/dL (<200); Estimated Glomerular Filt Rate 51; Glucose Fasting 101 mg/dL (60-99); HDL Cholesterol 55 mg/dL (>40); LDL Cholesterol Calculated 98 mg/dL (<100); Potassium 4.6 mmol/L (3.3-5.1); Sodium 141 mmol/L (135-145); Triglycerides 142 mg/dL (<150)
[2024-03-22 08:32] LABS: Thyroid Stimulating Hormone 2.43 uIU/mL (0.32-4.0)
== END 2024-03-22 07:03 | disposition home or self-care (01) ==
LOC: HO.LAB 07:02
PROVIDERS: PCP Internal Medicine; Visit Provider Internal Medicine
DX: Z13.0 Encounter for screening for diseases of the blood and blood-forming organs and certain disorders involving the immune mechanism (principal); Z13.9 Encounter for screening, unspecified; Z13.29 Encounter for screening for other suspected endocrine disorder; Z13.220 Encounter for screening for lipoid disorders
CPT/HCPCS: 36415; 80053; 80061; 84443; 85025

== ENCOUNTER 2024-04-05 08:37 | Outpatient (AMB) | payer BC, SELFPAY ==
--- NOTE | 2024-04-05 08:37 | A.OFFPC_ITS ---
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 Accompanied by: Self / Same As Patient Allergies Sulfa (Sulfonamide Antibiotics) [SULFA (SULFONAMIDE ANTIBIOTICS)] Allergy (Severe, Verified 04/05/24 08:39) rash/facial swelling & redness/difficulty breathing Medication List - Last Reconciled 04/05/24 by Irvin Dougherty MD atorvastatin 20 mg PO DAILY levothyroxine 137 mcg PO DAILY Tobacco use date assessed: 09/13/23 Dental Screening Dental Screen Date: 04/05/24 Did you have a dental visit in the last 12 months?: Yes Did you have a dental problem in the last 6 months where you did not have access to dental care?: No Was dental information given to patient?: Patient has dentist HPI patient requesting telehealth to review labs HPI Details hyperlipidemia on rx; doing well; compliant [facility] Medical History COVID-19 vaccine administered GERD (gastroesophageal reflux disease) History of adenomatous polyp of colon History of COVID-19 History of postoperative nausea and vomiting Hyperlipidemia Hypothyroidism Thyroid disease Tubular adenoma Surgical History H/O colonoscopy H/O umbilical hernia repair History of cholecystectomy Family History Father Diabetes Mother Pancreatic cancer Brother No problems noted. Son No problems noted. 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 Homer L. ChicoCoretta hassan Kurt Kroenke and colleagues, with an educational bryn from [employer]. Review of Systems Const Denies chills, Denies headache(s) and Denies weight loss ENT Denies headache(s) Card Denies chest pain, Denies syncope, Denies irregular heart rhythm and Denies dyspnea Resp Denies chest congestion, Denies cough and Denies dyspnea GI Denies abdominal pain, Denies change in stool character, Denies nausea and Denies vomiting Musc Denies deformity and Denies joint swelling Neuro Denies syncope and Denies headache(s) Physical exam (Primary Care) Tobacco/Smoking Status: Tobacco use Status Tobacco use date assessed 09/13/23 04/05/24 08:38 Patient Tobacco Use Status Former Tobacco user 04/05/24 08:38 Tobacco use type Cigarette 04/05/24 08:38 e-Cigarette/Vaping Use Never Used 04/05/24 08:38 Thrive Assessment: Date of Thrive Assessment Date Thrive assessed 09/13/23 04/05/24 08:38 Telehealth Telehealth Telehealth Platform: Telephone Location of provider rendering services: practice address Location of patient: address on file Patient Identification confirmed using: Name, : Yes Telehealth method: voice only Patient verbally consented to treatment: Yes Patient verbally consented to billing insurance company: Yes Patient informed of any privacy concerns related to visit: Yes Minutes spent on Phone/Video with Pt.: 15 (telephone) Coding Level of Care Code Tele Est Pt Level 3 (17478) Diagnoses Hyperlipidemia E78.5 Assessment & Plan Assessment & Plan (1) Hyperlipidemia: Code(s): E78.5 - Hyperlipidemia, unspecified Category: Medical Plan: stable; same rx Orders: Orders Lipid Panel Today Z13.220 - Encounter for screening for lipoid disorders Thyroid Stimulating Hormone Today Z13.29 - Encounter for screening for other suspected endocrine disorder
== END 2024-04-05 10:03 | disposition home or self-care (01) ==
LOC: HO.HMCH 08:37
PROVIDERS: PCP Internal Medicine; Visit Provider Internal Medicine
DX: E78.5 Hyperlipidemia, unspecified (principal)

== ENCOUNTER → 2024-04-05 08:37 | Outpatient (BNVA) | payer BC, SELFPAY | PROVIDERS: PCP Internal Medicine; Visit Provider Internal Medicine ==

== ENCOUNTER 2024-06-17 11:48 | Outpatient (REF) | payer BC, SELFPAY | END 2024-06-17 11:49 | disposition home or self-care (01) | LOC: HO.MAMMO 11:48 | PROVIDERS: PCP Internal Medicine; Visit Provider Internal Medicine | DX: Z12.31 Encounter for screening mammogram for malignant neoplasm of breast (principal) | CPT/HCPCS: 77063; 77067 ==

== ENCOUNTER → 2024-06-17 12:00 | Outpatient (BNV) | payer BC, SELFPAY | PROVIDERS: PCP Internal Medicine; Visit Provider Internal Medicine | DX: Z12.31 Encounter for screening mammogram for malignant neoplasm of breast (principal) | CPT/HCPCS: 77063; 77067 ==

== ENCOUNTER 2024-10-01 07:03 | Outpatient (REF) | payer BC, SELFPAY ==
[2024-10-01 07:59] LABS: Cholesterol 148 mg/dL (<200); HDL Cholesterol 52 mg/dL (>40); LDL Cholesterol Calculated 74 mg/dL (<100); Triglycerides 111 mg/dL (<150)
[2024-10-01 08:13] LABS: Thyroid Stimulating Hormone 1.14 uIU/mL (0.32-4.0)
== END 2024-10-01 07:04 | disposition home or self-care (01) ==
LOC: HO.LAB 07:03
PROVIDERS: PCP Internal Medicine; Visit Provider Internal Medicine
DX: Z13.220 Encounter for screening for lipoid disorders (principal); Z13.29 Encounter for screening for other suspected endocrine disorder; Z13.6 Encounter for screening for cardiovascular disorders
CPT/HCPCS: 36415; 80061; 84443

== ENCOUNTER 2024-10-07 07:23 | Outpatient (AMB) | payer BC, SELFPAY ==
--- NOTE | 2024-10-07 07:37 | A.OFFPC_ITS ---
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/u Patient Companion Required: No Accompanied by: Self / Same As Patient Allergies Sulfa (Sulfonamide Antibiotics) [SULFA (SULFONAMIDE ANTIBIOTICS)] Allergy (Severe, Verified 10/07/24 07:43) rash/facial swelling & redness/difficulty breathing Medication List - Last Reconciled 10/07/24 by Aracelis Epps MD atorvastatin 20 mg PO DAILY levothyroxine 137 mcg PO DAILY Tobacco use date assessed: 10/07/24 Dental Screening Dental Screen Date: 10/07/24 Did you have a dental visit in the last 12 months?: Yes Did you have a dental problem in the last 6 months where you did not have access to dental care?: No Was dental information given to patient?: Patient has dentist HPI HPI Comments History of Present Illness Details The patient is a 58-year-old female presenting for a routine follow-up to address her health maintenance including her medication regimen. She reports no current health issues but maintains prophylactic care for her known conditions. She has a known allergy to sulfonamides and continues on atorvastatin and levothyroxine with recent lab results demonstrating effective control of both her hyperlipidemia and hypothyroidism. Surgical history includes a cholecystectomy and umbilical hernia repair, with her last colorectal screening performed in 2020. She has a notable family history of pancreatic cancer on her mother's side and late-onset diabetes mellitus along with cardiovascular events in her father. [facility] Medical History (Updated 10/07/24 @ 07:58 by Aracelis Epps MD) Hypothyroidism History of adenomatous polyp of colon History of postoperative nausea and vomiting GERD (gastroesophageal reflux disease) COVID-19 vaccine administered History of COVID-19 Thyroid disease Tubular adenoma Hyperlipidemia Surgical History H/O umbilical hernia repair H/O colonoscopy History of cholecystectomy Family History Father Diabetes Mother Pancreatic cancer Brother No problems noted. Son No problems noted. 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 1. Little interest or pleasure in doing things: not at all 2. Feeling down, depressed, or hopeless: not at all 3. Trouble falling or staying asleep, or sleeping too much: not at all 4. Feeling tired or having little energy: not at all 5. Poor appetite or overeating: not at all 6. Feeling bad about yourself - or that you are a failure or have let yourself or your family down: not at all 7. Trouble concentrating on things, such as reading the newspaper or watching television: not at all 8. Moving or speaking so slowly that other people could have noticed. Or the opposite - being so fidgety or restless that you have been moving around a lot more than usual: not at all 9. Thoughts that you would be better off or of hurting yourself in some way: not at all Total score: 0 Depression Screening Interpretation: Negative Depression Screening Done: Yes 03641 - PHQ-9 Billing: Yes Source: Developed by Drs. Homer Golden, Coretta Geronimo, Ward Florez and colleagues, with an educational bryn from [employer]. Thrive Questionnaire Date Thrive assessed: 10/07/24 I am a: Patient What is your living situation today?: I have a steady place to live Within the past 12 months, did the food you bought not last and you didn't have the money to get more?: Never true Within the past 12 months, did you worry whether your food would run out before you got money to buy more?: Never true Do you have trouble paying for medicines?: No Do you have trouble getting transportation to medical appointments?: No Do you have trouble paying your heating and electricity bill?: No Do you have trouble taking care of your child, family member or friend?: No Do you have trouble with day-to-day activities such as bathing, preparing meals, shopping, managing finances, etc.?: No Are you currently unemployed and looking for a job?: No Are you interested in more education?: No Please select the resources that you would like help with: None Currently or been in a relationship where the following occur: No concerns reported THRIVE Score: 0 AUDIT C Alcohol Use Questionnaire (AUDIT-C) 1. How often do you have a drink containing alcohol?: 2-4 times a month 2. How many drinks containing alcohol do you have on a typical day when you are drinking?: 1 or 2 3. How often do you have six or more drinks on one occasion?: Never Total Score: 2 ALEX-7 AMB Questionnaire ALEX-7 Date ALEX - 7 assessed: 10/07/24 Feeling nervous, anxious, or on edge: 0 = Not at all Not being able to stop or control worryin = Not at all Worrying too much about different things: 0 = Not at all Trouble relaxin = Not at all Being so restless that it is hard to sit still: 0 = Not at all Becoming easily annoyed or irritable: 0 = Not at all Feeling afraid as if something awful might happen: 0 = Not at all Total ALEX-7 score (0-4 normal; 5-9 mild; 10-14 moderate; 15-21 severe): 0 Source: Developed by Drs. Homer Golden, Coretta Geronimo, Ward Florez and colleagues, with an educational bryn from [employer]. ALEX-7 Assessment Billing ALEX-7 Assessment Tool: ALEX-7 Assessment 49623 Review of Systems Const All systems reviewed & are unremarkable except as noted in HPI and below Card Denies chest pain at rest, Denies chest pain with activity, Denies edema, Denies irregular heart rhythm, Denies claudication, Denies dyspnea, Denies dyspnea on exertion, Denies orthopnea, Denies paroxysmal nocturnal dyspnea and Denies slow heart rate Resp Denies cough, Denies dyspnea and Denies dyspnea on exertion GI Denies abdominal pain, Denies change in bowel habits, Denies excessive flatus, Denies nausea and Denies vomiting Physical exam (Primary Care) Vital Signs: Last Vital Signs BP 128/86 10/07/24 07:39 BMI result Body Mass Index 29.1 Tobacco/Smoking Status: Tobacco use Status Tobacco use date assessed 09/13/23 04/05/24 08:38 Patient Tobacco Use Status Former Tobacco user 04/05/24 08:38 Tobacco use type Cigarette 04/05/24 08:38 e-Cigarette/Vaping Use Never Used 04/05/24 08:38 Depression Screening Interpretation: Negative Thrive Assessment: Date of Thrive Assessment Date Thrive assessed 09/30/24 09/30/24 14:22 Currently or been in a relationship where the following occur: No concerns reported Neck Neck: Yes normal visual inspection and Yes supple Resp Effort & Inspection: normal respiratory effort Auscultation: clear to auscultation bilaterally Cardio Jugular venous distension: no JVD Rate: regular rate Rhythm: regular rhythm Heart sounds: S1 normal heart sound present and S2 normal heart sound present Extrem General: Yes full ROM Coding Level of Care Code Est Pt Level 3 (75735) Complex EM visit Add On G2211 Diagnoses Hypothyroidism E03.9 Screening for cervical cancer Z12.4 Hyperlipidemia E78.5 Additional Codes ALEX-7 Assessment Billing - ALEX-7 Assessment Tool: ALEX-7 Assessment 12070 ([id number]) PHQ-9 - 58300 - PHQ-9 Billing: Yes ([id number]) Time Spent (min) 19 Assessment & Plan Assessment & Plan (1) Hypothyroidism: Code(s): E03.9 - Hypothyroidism, unspecified Category: Medical (2) Screening for cervical cancer: Code(s): Z12.4 - Encounter for screening for malignant neoplasm of cervix Category: Medical (3) Hyperlipidemia: Code(s): E78.5 - Hyperlipidemia, unspecified Category: Medical Plan The patient's care will include bi-annual laboratory tests to assess stability in thyroid and lipid profiles. Family history considerations do not require immediate changes to care, but vigilance for cardiovascular symptoms is advised because of her father's history. Patient was informed and verbally consented to the use of an ambient scribe for clinic note documentation during this visit. I discussed with the patient the effectiveness of her current medications, atorvastatin and levothyroxine, with a mutual understanding to continue them for cholesterol and thyroid management. We reviewed her surgical history and agreed to proceed with the Pap smear, for which a referral was made. We confirmed her mammogram schedule is up-to-date. The patient's colonoscopy will be reconsidered by 2025. We touched on her family history, emphasizing the importance of card iovascular monitoring. There was an agreement to conduct repeated labs in six months to continually assess her condition. Orders: Orders Lipid Panel 6 Months E78.5 - Hyperlipidemia, unspecified Thyroid Stimulating Hormone 6 Months E03.9 - Hypothyroidism, unspecified Comprehensive [place]. Panel Fast 6 Months E78.5 - Hyperlipidemia, unspecified Referrals DIRECTOR HOSPICE OPERATIONS Referral Z12.4 - Encounter for screening for malignant neoplasm of cervix Patient Instructions: - Continue taking atorvastatin and levothyroxine as prescribed. - Schedule your Pap smear at the hospital. - Keep up with annual mammograms. - Watch for any heart symptoms like pain or an irregular heartbeat. - Repeat blood tests in six months. - Follow the doctor's instructions at all times.
[2024-10-07 07:39] VITALS: BP 128/86; BMI 29.1
== END 2024-10-07 07:51 | disposition home or self-care (01) ==
LOC: HO.HMCH 07:24
PROVIDERS: PCP Internal Medicine; Visit Provider Internal Medicine
DX: E03.9 Hypothyroidism, unspecified (principal); Z12.4 Encounter for screening for malignant neoplasm of cervix; E78.5 Hyperlipidemia, unspecified

== ENCOUNTER → 2024-10-07 07:23 | Outpatient (BNVA) | payer BC, SELFPAY | PROVIDERS: PCP Internal Medicine; Visit Provider Internal Medicine | DX: E03.9 Hypothyroidism, unspecified (principal); E78.5 Hyperlipidemia, unspecified; Z79.899 Other long term (current) drug therapy | CPT/HCPCS: 96127 ==

== ENCOUNTER 2024-10-16 08:20 | Outpatient (REF) | payer BC, SELFPAY ==
[2024-10-23 07:54] LABS: HPV Genotype 16 Negative (Negative); HPV Genotype 18 Negative (Negative); HPV High Risk Negative (Negative)
== END 2024-10-16 08:21 | disposition home or self-care (01) ==
LOC: HO.LNP 08:20
PROVIDERS: PCP Internal Medicine; Visit Provider Advanced Practice Midwife
DX: Z01.419 Encounter for gynecological examination (general) (routine) without abnormal findings (principal); N88.9 Noninflammatory disorder of cervix uteri, unspecified
CPT/HCPCS: 87626; 88175

== ENCOUNTER 2024-10-16 08:20 | Outpatient (AMB) | payer BC, SELFPAY ==
--- NOTE | 2024-10-16 08:23 | MHC.OFFVIS ---
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 She is doing well with no medical staff specialist concerns. Reports hot flashes at times. Currently sexually active w/. Denies any vaginal dryness or irritation. STI testing offered; she declines. Attempting to eat a healthy diet with calcium and vitamin D, and stays active with exercise. Last pap smear; a few ago, abnormal in the past. Last mammogram; 2024. Colonoscopy is UTD. Denies any family history of breast, ovarian or colon cancer. [facility] Medical History Cervical polyp Hypothyroidism History of adenomatous polyp of colon History of postoperative nausea and vomiting GERD (gastroesophageal reflux disease) COVID-19 vaccine administered History of COVID-19 Thyroid disease Tubular adenoma Hyperlipidemia Surgical History H/O umbilical hernia repair H/O colonoscopy History of cholecystectomy Family History Father Diabetes Mother Pancreatic cancer Brother No problems noted. Son No problems noted. 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 Current occupational exposures/hazards: No Cognitive needs: No Hearing needs: No Vision needs: Yes Female Reproductive History Menstrual Total pregnancies: 2 Full term: 2 Number of Living Children: 2 Date of Mammogram: 06/17/24 (Birad 1) Review of Systems Const All systems reviewed & are unremarkable except as noted in HPI and below Reports as per HPI Eyes Reports no additional complaints ENT Reports no additional complaints Card Reports no additional complaints Resp Reports no additional complaints GI Reports as per HPI and Reports no additional complaints Reports as per HPI Musc Reports no additional complaints Skin/Breast Reports as per HPI Neuro Reports no additional complaints Psych Reports no additional complaints Endo Reports no additional complaints Kamaljit/Lymph Reports no additional complaints Aller/Immun Reports no additional complaints Physical Exam Vital Signs: Last Vital Signs BP 120/80 10/16/24 08:24 BMI result Body Mass Index 29.1 Const General: cooperative, healthy appearing, no acute distress, well developed and alert Orientation/consciousness: patient oriented x3 HEENT Head: Yes normal to inspection Eyes General: appearance normal, both eyes and all related structures Neck Neck: Yes normal visual inspection Thyroid: Thyroid normal Chest Chest palpation & inspection: normal inspection of the chest and other (no puckering, dimpling, peau de orange, retraction, discharge, masses) Breast/axilla inspection: normal inspection of the breasts Breast/axilla palpation: normal palpation of the breasts Resp Effort & Inspection: normal respiratory effort GI Inspection: Yes normal to inspection Palpation (GI): Soft to palpation Rectal Exam - Female: deferred General: Yes bladder normal to palpation External Female Exam: normal external appearance and normal appearance of the urethra Speculum Exam - Vagina: normal appearance of the vagina, normal palpation and normal vaginal discharge Speculum Exam - Cervix: normal appearance of the cervix, normal palpation and Cervical mass present (appears as a polyp wide based) pedunculated Bimanual exam- vagina & uterus: normal bimanual exam, normal palpation, uterine size normal, bladder normal to palpation, normal palpation and non-tender Bimanual Exam- Adnexa, other: no masses Skin General skin exam: no rashes or lesions noted Rashes: no rashes Neuro General: patient oriented x3 Cognition (Neuro): normal cognition Extrem General: Yes normal to inspection Psych Attitude: cooperative Thought process: Normal thought process present Assessment & Plan Assessment & Plan (1) Encounter for well woman exam with routine gynecological exam: Code(s): Z01.419 - Encounter for gynecological examination (general) (routine) without abnormal findings Category: Medical Plan: Discussed: Current recommendations for pap smears per ASCCP guidelines. Pap smear obtained. Breast awareness, periodic self breast exams and yearly mammogram. Maintain a healthy lifestyle, well balanced diet including Calcium 1,200 mg and Vitamin D 600 IU daily, and routine exercise. Contact the office with any postmenopausal bleeding. Self-help measures for hot flashes. Patient verbalizes understanding and agrees to the plan of care. She was given opportunity to ask questions and all questions were answered to the best of my ability. RTO in 1 year for annual medical staff specialist exam. This note is constructed using voice recognition software. While every effort has been made to ensure accuracy, senior it engineer errors may have been included. (2) Cervical polyp: Code(s): N84.1 - Polyp of cervix uteri Category: Medical Plan Counseled regarding polyp findings, recommended removal, scheduled polypectomy procedure with Dr. Min. Patient verbalizes understanding and agrees to the plan of care. She was given opportunity to ask questions and all questions were answered to the best of my ability. This note is constructed using voice recognition software. While every effort has been made to ensure accuracy, senior it engineer errors may have been included. Orders: Orders HPV High risk Today Z01.419 - Encounter for gynecological examination (general) (routine) without abnormal findings Pap Smear Today N88.9 - Noninflammatory disorder of cervix uteri, unspecified, Z01.419 - Encounter for gynecological examination (general) (routine) without abnormal findings Coding Level of Care Code New Pt Prev Care 40-64y(01016) Diagnoses Encounter for well woman exam with routine gynecological exam Z01.419 Cervical polyp N84.1
[2024-10-16 08:24] VITALS: BP 120/80; BMI 29.1
== END 2024-10-16 09:24 | disposition home or self-care (01) ==
LOC: HO.HWS 08:21
PROVIDERS: PCP Internal Medicine; Visit Provider Advanced Practice Midwife
DX: Z01.419 Encounter for gynecological examination (general) (routine) without abnormal findings (principal); N84.1 Polyp of cervix uteri
CPT/HCPCS: 99386; 99459

== ENCOUNTER 2024-10-31 12:16 | Outpatient (AMB) | payer BC, SELFPAY ==
--- NOTE | 2024-10-31 12:30 | MHC.OFFVIS ---
Vital Signs 10/31/24 12:31 Height 5 ft 7 in Weight 186 lb BMI 29.1 Intake Visit Reasons: polypectomy Human Resources Records Clerk Required: No Information Interpreted: non-clinical & clinical Bin Operator: Bin Operator Present (Alyx MAY) Accompanied by: Self / Same As Patient Allergies Sulfa (Sulfonamide Antibiotics) [SULFA (SULFONAMIDE ANTIBIOTICS)] Allergy (Severe, Verified 10/31/24 12:35) rash/facial swelling & redness/difficulty breathing Post menopausal: Yes HPI Comments Details: Presenting referred from Mariana Singleton CNM regarding cervical polyp no history of vaginal bleeding or postcoital pain or bleeding. 10/20 co testing negative [facility] Medical History Cervical polyp Hypothyroidism History of adenomatous polyp of colon History of postoperative nausea and vomiting GERD (gastroesophageal reflux disease) COVID-19 vaccine administered History of COVID-19 Thyroid disease Tubular adenoma Hyperlipidemia Surgical History H/O umbilical hernia repair H/O colonoscopy History of cholecystectomy Family History Father Diabetes Mother Pancreatic cancer Brother No problems noted. Son No problems noted. 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 occupational exposures/hazards: No Cognitive needs: No Hearing needs: No Vision needs: Yes Review of Systems Const All systems reviewed & are unremarkable except as noted in HPI and below Physical Exam Vital Signs: BMI result Body Mass Index 29.1 General: Yes no CVA tenderness External Female Exam: normal external appearance and normal appearance of the urethra Speculum Exam - Vagina: normal appearance of the vagina, normal palpation, no lesions and no masses Speculum Exam - Cervix: normal appearance of the cervix, normal palpation, no lesions, no masses, nontender and Other cervical findings present (Cervical polyp seen) Bimanual exam- vagina & uterus: normal bimanual exam, normal palpation, uterine size normal, normal palpation, uterine shape normal, No Cervical tenderness present and non-tender Bimanual Exam- Adnexa, other: normal adnexae Back/Spine/Pelvis Back: no CVA tenderness Office Procedures ADMINISTRATIVE SECRETARY Biopsy Before the procedure was started, discussed with the patient the procedure technique, alternatives & all the risks associated with the procedure including but not limited to: bleeding , infection, uterine perforation, injury to bladder, vessels, bowels, possible need for transfusion with all its risks, and others. All questions were answered, the patient verbalized understanding and signed the consent. Urine test done in the office was negative Using a long Tosha Clamp the endocervical polyp was grasped and twisted around till it came off, hemostasis was secured using pressure. The patient tolerated the procedure well. Instructions were given to the patient to call if bleeding, temp>100.4 occur. The patient verbalized understanding and agreed with the plan. This note was generated with a voice recognition program. Some errors may have been overlooked during the review of this note. Sometimes these errors may affect the content or meaning of a given sentence. 31184-Jdkrlr of Cervix Procedure code (CPT) selection complete Assessment & Plan Assessment & Plan (1) Cervical polyp: Code(s): N84.1 - Polyp of cervix uteri Category: Medical Plan: Cervical polyp seen on pelvic exam, cervical polypectomy done, see procedure note. Pelvic ultrasound ordered to rule out endocervical/endometrial associated polyps. Instructions given to patient to schedule a pelvic ultrasound and a follow-up appointment within 2 weeks. All questions answered, the patient verbalized understanding. Orders: Orders AMB ADMINISTRATIVE SECRETARY Biopsy Today N84.1 - Polyp of cervix uteri US pelvic and transvaginal Today N84.1 - Polyp of cervix uteri Coding Level of Care Code Est Pt Level 3 (82435) Procedure Only Diagnoses Cervical polyp N84.1 CPT Codes ADMINISTRATIVE SECRETARY Biopsy - CPT: 70509-Sokffo of Cervix ([id number])
[2024-10-31 12:31] VITALS: BMI 29.1
== END 2024-10-31 13:19 | disposition home or self-care (01) ==
LOC: HO.HWS 12:17
PROVIDERS: PCP Internal Medicine; Visit Provider Obstetrics & Gynecology
DX: N84.1 Polyp of cervix uteri (principal)
CPT/HCPCS: 57500; 99213

== ENCOUNTER 2024-10-31 12:16 | Outpatient (REF) | payer BC, SELFPAY | END 2024-10-31 12:17 | disposition home or self-care (01) | LOC: HO.LNP 12:16 | PROVIDERS: PCP Internal Medicine; Visit Provider Obstetrics & Gynecology | DX: N84.1 Polyp of cervix uteri (principal) | CPT/HCPCS: 57500; 88305 ==

== ENCOUNTER 2024-12-17 11:23 | Outpatient (REF) | payer BC, SELFPAY ==
--- NOTE | ~2024-12-17 | US_ITS ---
CLINICAL HISTORY: N84.1 - Polyp of cervix uteri US pelvis transabdominal and transvaginal Comparison: None provided Findings: Transabdominal and transvaginal scanning performed. Transvaginal scanning performed to better characterize the ovaries and endometrium. Family Literacy Coordinator reports the patient is post polypectomy. Anteverted uterus is 5.7 cm length. No discrete cervical mass identified. There is a small calcification within the cervix. Normal myometrium. Endometrium 5 mm thickness. Right ovary 1.5 x 0.8 x 0.9 cm. Left ovary 1.3 x 0.8 x 0.8 cm. Normal color Doppler of both ovaries. No free fluid. IMPRESSION: 1. 5 mm endometrium top-normal in a postmenopausal patient. Correlate for postmenopausal bleeding. 2. No discrete cervical mass identified. This document has been electronically signed by: Shirley Eldridge MD on 12/18/2024 11:11:03
== END 2024-12-17 11:24 | disposition home or self-care (01) ==
LOC: HO.US 11:23
PROVIDERS: PCP Internal Medicine; Visit Provider Obstetrics & Gynecology
DX: N84.1 Polyp of cervix uteri (principal)
CPT/HCPCS: 76830; 76856

== ENCOUNTER → 2024-12-17 11:25 | Outpatient (BNV) | payer BC, SELFPAY | PROVIDERS: PCP Internal Medicine; Visit Provider Radiology Diagnostic Radiology | DX: N84.1 Polyp of cervix uteri (principal) | CPT/HCPCS: 76830; 76856 ==

== ENCOUNTER 2024-12-25 09:52 | Outpatient (AMB) | payer BC, SELFPAY ==
--- NOTE | 2024-12-25 09:54 | A.OFFVIS_ITS ---
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 Pathology showed the following: Cervical polyp, polypectomy: Benign endocervical polyp Pelvic ultrasound showed the following: Transabdominal and transvaginal scanning performed. Transvaginal scanning performed to better characterize the ovaries and endometrium. Plug Making Operator reports the patient is post polypectomy. Anteverted uterus is 5.7 cm length. No discrete cervical mass identified. There is a small calcification within the cervix. Normal myometrium. Endometrium 5 mm thickness. Right ovary 1.5 x 0.8 x 0.9 cm. Left ovary 1.3 x 0.8 x 0.8 cm. Normal color Doppler of both ovaries. No free fluid PFSH Medical History (Updated 12/25/24 @ 09:59 by Kenan Min MD) Cervical polyp Hypothyroidism History of adenomatous polyp of colon History of postoperative nausea and vomiting GERD (gastroesophageal reflux disease) COVID-19 vaccine administered History of COVID-19 Thyroid disease Tubular adenoma Hyperlipidemia Surgical History H/O umbilical hernia repair H/O colonoscopy History of cholecystectomy Family History Father Diabetes Mother Pancreatic cancer Brother No problems noted. Son No problems noted. 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 Current occupational exposures/hazards: No Cognitive needs: No Hearing needs: No Vision needs: Yes Female Reproductive History Menstrual Date of last menstrual period: 03/26/20 Total pregnancies: 2 Full term: 2 Review of Systems Card Reports as per HPI and Reports no additional complaints Resp Reports as per HPI and Reports no additional complaints GI Reports as per HPI and Reports no additional complaints Reports as per HPI Physical Exam Const General: cooperative, healthy appearing and comfortable Resp Effort & Inspection: normal respiratory effort Auscultation: clear to auscultation bilaterally Percussion: percussion normal Cardio Palpation: normal PMI Rate: regular rate Rhythm: regular rhythm Heart sounds: no murmurs and no rubs Peripheral pulses: Peripheral pulses 2+ throughout GI Inspection: Yes normal to inspection Palpation (GI): Soft to palpation, nontender, no guarding, not rigid and No hepatosplenomegaly present Percussion: Yes normal to percussion Auscultation: normal bowel sounds Rectal Exam - Female: deferred Office Procedures Endometrial Biopsy Details: The patient was counseled regarding the indication and benefits of endometrial sampling to rule out endometrial pathology including not limited to endometrial hyperplasia or endometrial cancer and others; The alternatives (Either do nothing vs. hysteroscopy D&C) & the risks were discussed with the patient including but not limited: pain, uterine perforation, bleeding, infection, possible injury to bladder, bowel, ureter, possible need for blood transfusion with all its possible risks. The patient verbalized understanding all questions answered and signed consent. The patient was placed into the dorsal lithotomy position; a speculum was inserted in the vagina. Using aseptic technique for the procedure, the cervix was cleansed with Betadine. The anterior lip of the cervix was grasped with a single tooth tenaculum. The uterus was sounded to 5.5 cm with a 4 mm Pipelle was used. At this point the patient requested to abort the procedure because of the pain. At the end of the procedure, there was minimal bleeding noted The patient could not tolerate the procedure well and was discharged in good condition with the following instructions: Nothing in the vagina until the bleeding stops. No sex until the bleeding stops, to call if any of the following occurs: fever (>100.4), flu-like symptoms, abdominal pain, heavy bleeding, four smelling vaginal discharge. The patient was instructed to schedule a Follow up appointment in 2 weeks to discuss pathology results of the biopsy and treatment options. This note was generated with a voice recognition program. Some errors may have been overlooked during the review of this note. Sometimes these errors may affect the content or meaning of a given sentence. 57033-Ungyoyjljur Biopsy Assessment & Plan Assessment & Plan (1) Cervical polyp: Comment: Status post polypectomy Code(s): N84.1 - Polyp of cervix uteri Category: Medical Plan: Discussed with the patient the results of the pathology, benign polyp, the patient was reassured. All questions answered, the patient verbalized understanding (2) Thickened endometrium: Code(s): R93.89 - Abnormal findings on diagnostic imaging of other specified body structures Category: Medical Plan: Discussed with the patient endometrial thickness above 4 mm in menopause , the differential diagnosis of a thickened endometrium includes but not limited to endometrial polyp, hyperplasia or carcinoma. Explained to the patient that endometrial each thickness is less predictive of endometrial neoplasia in asymptomatic patients, i.e. those without postmenopausal uterine bleeding. The sensitivity and specificity for detecting endometrial carcinoma at an endometrial thickness of >= 5mm was 83 and 72 percent, respectively; this is lower than in patients with bleeding. Studies have shown that postmenopausal patients without uterine bleeding who had an endometrial thickness >11 mm had an endometrial carcinoma risk of 6.7 percent; this risk is similar to postmenopausal patients with bleeding and an endometrial thickness >5 mm. Recommended endometrial sampling to rule endometrial pathology via either office endometrial biopsy or diagnostic hysteroscopy/D&C with possible polypectomy/myomectomy. All pros and cons, risks and benefits of each approach were discussed with the patient, the patient decided to proceed with endometrial biopsy. EMB attempted but aborted since the patient could not tolerate the pain, see procedure note. Recommended next step to proceed with hysteroscopy D&C possible polypectomy/myomectomy. Discussed with the patient the procedure , all benefits and risks including but not limited to inability to complete the procedure , insufficient endometrial tissue for a complete evaluation of the endometrial cavity , bleeding, infection, possible need for blood transfusion with all its risk ( HIV,syphilis, Hepatitis, anaphylaxis shock, others..), injury to bladder, rectum, possible need for laparoscopy/laparotomy or hysterectomy. The patient verbalized understanding and signed the consent. Instructions given the patient to stay NPO after midnight the day prior to the procedure and to take only the specific medication (s) discussed the morning of the surgical procedure and to schedule a 2 week postoperative appointment Orders: Orders AMB Endometrial Biopsy Today R93.89 - Abnormal findings on diagnostic imaging of other specified body structures Coding Level of Care Code Est Pt Level 3 (41399) Diagnoses Cervical polyp N84.1 Thickened endometrium R93.89 CPT Codes Endometrial Biopsy - CPT: 48450-[id number] Biopsy ([id number])
== END 2024-12-25 10:30 | disposition home or self-care (01) ==
LOC: HO.HWS 09:53
PROVIDERS: PCP Internal Medicine; Visit Provider Obstetrics & Gynecology
DX: N84.1 Polyp of cervix uteri (principal); R93.89 Abnormal findings on diagnostic imaging of other specified body structures
CPT/HCPCS: 58100; 99213

== ENCOUNTER → 2024-12-25 09:52 | Outpatient (BNVA) | payer BC, SELFPAY | PROVIDERS: PCP Internal Medicine; Visit Provider Obstetrics & Gynecology | DX: N84.1 Polyp of cervix uteri (principal); R93.89 Abnormal findings on diagnostic imaging of other specified body structures | CPT/HCPCS: 58100 ==

== ENCOUNTER 2025-01-02 12:51 | Day surgery (SDC) | payer BC, SELFPAY ==
--- NOTE | 2025-01-01 09:51 | P.CONAN_ITS ---
Documented by User: Narcisa Zapien NP 01/01/25 09:53 HPI - Anesthesia Eval Consult details Narrative: 59yo F for D&C Hysteroscopy,possible myomectomy,possible polypectomy PMFSH Active Problems Active Problems: All Active Problems Thickened endometrium (Acute) Lumbar pain (Acute) Upper back pain (Acute) Cervical polyp (Acute) Encounter for well woman exam with routine gynecological exam (Acute) Screening for cervical cancer (Acute) Chest pain (Acute) COVID-19 (Acute) Hypothyroidism (Acute) Internal hemorrhoids (Acute) Diverticulosis large intestine w/o perforation or abscess w/o bleeding (Acute) Tubular adenoma (Acute) Hyperlipidemia (Acute) Past Medical History Medical History (Updated 12/25/24 @ 09:59 by Kenan Min MD) Cervical polyp Hypothyroidism History of adenomatous polyp of colon History of postoperative nausea and vomiting GERD (gastroesophageal reflux disease) COVID-19 vaccine administered History of COVID-19 Thyroid disease Tubular adenoma Hyperlipidemia Family History Family History Father Diabetes Mother Pancreatic cancer Brother No problems noted. Son No problems noted. Surgical History Surgical History H/O umbilical hernia repair H/O colonoscopy History of cholecystectomy Social History Social History Household Members: Spouse Household Members Other:: 2 sons- Housing: House Are you a primary medicare contact specialist to a significant other at home: No Do you presently have visiting nurse or other home services: No Alcohol intake: current Alcohol intake frequency: holidays/special occasions only Patient Tobacco Use Status: Former Tobacco user Tobacco use type: Cigarette e-Cigarette/Vaping Use: Never Used Second Hand Smoke Exposure: No Use of substances other than those prescribed or required for medical reasons: No Have you been hit, kicked, punched, or otherwise hurt by someone within the past year? 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 occupational exposures/hazards: No Cognitive needs: No Hearing needs: No Vision needs: Yes Meds Allergies Allergy/AdvReac Type Severity Reaction Status Date / Time Sulfa (Sulfonamide Allergy Severe rash/facial Verified 01/02/25 13:01 Antibiotics) (SULFA swelling & (SULFONAMIDE ANTIBIOTICS)) redness/difficulty breathing Assessment and Plan Assessment Anesthesia Assessment: Chart Reviewed Documented by User: Peter Fraga MD 01/02/25 13:16 PMFSH Past Medical History Medical History (Updated 12/25/24 @ 09:59 by Kenan Min MD) Cervical polyp Hypothyroidism History of adenomatous polyp of colon History of postoperative nausea and vomiting GERD (gastroesophageal reflux disease) COVID-19 vaccine administered History of COVID-19 Thyroid disease Tubular adenoma Hyperlipidemia Family History Family History Father Diabetes Mother Pancreatic cancer Brother No problems noted. Son No problems noted. Family history of problems with anesthesia: No Surgical History Surgical History H/O umbilical hernia repair H/O colonoscopy History of cholecystectomy History of Problems with Anesthesia: Yes (PONV) Social History Social History Household Members: Spouse Household Members Other:: 2 sons- Housing: House Are you a primary medicare contact specialist to a significant other at home: No Do you presently have visiting nurse or other home services: No Alcohol intake: current Alcohol intake frequency: holidays/special occasions only Patient Tobacco Use Status: Former Tobacco user Tobacco use type: Cigarette e-Cigarette/Vaping Use: Never Used Second Hand Smoke Exposure: No Use of substances other than those prescribed or required for medical reasons: No Have you been hit, kicked, punched, or otherwise hurt by someone within the past year? 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 occupational exposures/hazards: No Cognitive needs: No Hearing needs: No Vision needs: Yes Meds Allergies Allergy/AdvReac Type Severity Reaction Status Date / Time Sulfa (Sulfonamide Allergy Severe rash/facial Verified 01/02/25 13:01 Antibiotics) (SULFA swelling & (SULFONAMIDE ANTIBIOTICS)) redness/difficulty breathing Exam Airway Mallampati Class: II TM Dist: <=3cm Neck ROM: Full Loose/Missing/Broken Teeth: No Heart: ok Lungs: ok Assessment and Plan Assessment Anesthesia Assessment: Anesthesia Plan Discussed Final Anesthetic Review Family History of Problems with Anesthesia: No History of Problems with Anesthesia: Yes (PONV) NPO: Yes ASA Class: II Final Preanesthetic Review: No Changes in Pt Med Stat, Meds/Allgs Chart Reviewed, Consent Obtained/Reviewed and Anes Risks/Benef Reviewed Patient Risk: Intermediate Procedure Risk: Low Anesthetic Plan Anesthetic Plan: GA and Agree w/ Assess. and Plan Disposition: Standard PACU
[2025-01-02 13:02] VITALS: BP 181/86; PULSE 82; RESP 14; TEMP 36.6; O2SAT 96; BMI 27.8
[2025-01-02] MEDS: Lactated Ringers 1,000 ML 100 ML IVCONT (13:07)
--- NOTE | 2025-01-02 13:21 | MHC.SHP ---
Pre-Procedural Eval Section A - 24 Hr Update-Section A only Date of Service: 01/02/25 The patient is an INPATIENT: No Changes since office visit: No Cold of Flu in the past 2 weeks, No New Medical Problems, No Changes in Medication and No Patient answered all questions The patient has been examined within 24 hours of the surgical procedure. The History & Physical has been completed within 30 days and I have reviewed it.: Yes Section B - Complete if H&P > 30 days Chief Complaint: Polyp of cervix uteri Allergies: Allergies Allergy/AdvReac Type Severity Reaction Status Date / Time Sulfa (Sulfonamide Allergy Severe rash/facial Verified 01/02/25 13:01 Antibiotics) (SULFA swelling & (SULFONAMIDE ANTIBIOTICS)) redness/difficulty breathing Plan Diagnosis/Plan: Unchanged I have reviewed the history and physical and performed a pertinent physical examination on my patient. No changes have occurred unless specified. Time Spent With Patient Time: Total time managing care of this patient today ____ minutes.
--- NOTE | 2025-01-02 14:00 | PM.OP ---
Brief Operative Note Date of Service: 01/02/25 Pre-op diagnosis: Thick endometrium by ultrasound Post-op diagnosis: same (Normal endometrial cavity) Procedure: Hysteroscopy D&C Surgeon: Kenan Min MD Anesthesia: GLMA Was an Spinning Bath Person used for this Procedure?: No Estimated blood loss (mL): 0 Pathology: other (Endometrial Scrapping) Condition: stable Disposition: PACU
--- NOTE | 2025-01-02 14:01 | P.OP_ITS ---
Operative Note Operative Note Date of Service: 01/02/25 Narrative: Preop Diagnosis: Thick endometrium by ultrasound Operation: Diagnostic Hysteroscopy, Dilataion & Curettage Post Op Diagnosis: Normal endometrial cavity QBL: Minimal Anesthesia: GLMA Surgeon: Kenan Min MD Multi Share Program Coordinator: None Complication: None Pathology: Endometrial Scrapings Procedure: The patient was put in the dorsal lithotomy position, scrubbed, and draped in the usual manner. A sterile speculum was inserted in the patient's vagina. The anterior lip of the cervix was grasped with a single tooth tenaculum. The cervix was dilated up to 5 mm, then the scope was inserted in the patient's uterus. Inspection revealed Normal endometrial cavity. The light Myosure Reach device was used to resect some of the endometrium from all around the endometrial cavity; the scope was removed from the endometrial cavity , sharp curettings was carried on with minimal amount of tissues retrieved. At the end of the procedure, all instruments were taken out of the patient uterine and vaginal cavity. The single tooth tenaculum was removed and homeostasis was assured using pressure,. The patient tolerated the procedure well and was transferred to the PACU in a stable condition.
[2025-01-02 14:04] VITALS: BP 152/84; PULSE 80; RESP 12; TEMP 36.1; O2SAT 96
[2025-01-02 14:09] VITALS: BP 124/77; PULSE 80; RESP 14; O2SAT 96
[2025-01-02 14:19] VITALS: BP 121/71; PULSE 77; RESP 14; O2SAT 97
[2025-01-02 14:30] VITALS: BP 143/74; PULSE 72; RESP 16; TEMP 36.1; O2SAT 99
== END 2025-01-02 14:42 | disposition home or self-care (01) ==
PROVIDERS: PCP Internal Medicine; Visit Provider Obstetrics & Gynecology
PROC: 0UDB8ZZ Extraction of Endometrium, Via Natural or Artificial Opening Endoscopic (ICD-10-PCS; CPT 58558; principal; 2025-01-02 14:50)
DX: N85.01 Benign endometrial hyperplasia (principal); E03.9 Hypothyroidism, unspecified; K21.9 Gastro-esophageal reflux disease without esophagitis; E78.5 Hyperlipidemia, unspecified; Z79.899 Other long term (current) drug therapy; Z88.2 Allergy status to sulfonamides; Z98.890 Other specified postprocedural states; Z87.891 Personal history of nicotine dependence
CPT/HCPCS: 58558; 88305; J2003; J2250; J2704; J3010

== ENCOUNTER → 2025-01-02 12:51 | Outpatient (BNV) | payer BC, SELFPAY | PROVIDERS: PCP Internal Medicine; Visit Provider Obstetrics & Gynecology | DX: N85.00 Endometrial hyperplasia, unspecified (principal) | CPT/HCPCS: 58558 ==

== ENCOUNTER 2025-01-16 09:17 | Outpatient (AMB) | payer BC, SELFPAY ==
--- NOTE | 2025-01-16 09:19 | A.OFFVIS_ITS ---
Intake Visit Reasons: post op Allergies Sulfa (Sulfonamide Antibiotics) (SULFA (SULFONAMIDE ANTIBIOTICS)) Allergy (Severe, Verified 01/02/25 13:01) rash/facial swelling & redness/difficulty breathing HPI Comments Details: The patient is presenting post hysteroscopy D&C no complaints minimal vaginal bleeding no feverishness chills or abdominal pain. Complaining of urinary frequency and dysuria of last 3 days, no fever or chills no flank pain Intraoperative finding: Normal endometrial cavity with no evidence of pathology The pathology showed the following: Endometrium, curettage: Scant superficial strips of benign atrophic endometrium and benign endocervical glandular and squamous epithelium, and fragments of benign atrophic endometrium with smooth muscle (myometrium versus submucosal leiomyoma); no atypia or carcinoma. [facility] Medical History Cervical polyp Hypothyroidism History of adenomatous polyp of colon History of postoperative nausea and vomiting GERD (gastroesophageal reflux disease) COVID-19 vaccine administered History of COVID-19 Thyroid disease Tubular adenoma Hyperlipidemia Surgical History H/O umbilical hernia repair H/O colonoscopy History of cholecystectomy Family History Father Diabetes Mother Pancreatic cancer Brother No problems noted. Son No problems noted. 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 Discussed with the patient the sensitivity, specificity, positive and negative predictive value, of endometrial biopsy in detecting endometrial pathology including but not limited to endometrial hyperplasia, cancer and other pathology; instructed the patient to call in case of vaginal bleeding , the next step will be to proceed with a diagnostic hysteroscopy/D&C for further endometrial sampling evaluation to rule out endometrial pathology. All questions answered and the patient verbalized understanding and agreed with the plan. (2) UTI (urinary tract infection): Code(s): N39.0 - Urinary tract infection, site not specified Category: Medical Plan: Urine dip was positive for leukocyte, blood and protein, urine culture sent and will treat with Macrobid 100 mg p.o. b.i.d. for 5 days. Instructions given the patient to call in case symptoms do not improve, fever above 100.4 or flank pain and to schedule a 2 week repeat urine dip appointment to follow-up on microscopic hematuria. Medications: New nitrofurantoin monohyd/m-cryst 100 mg (Macrobid) 100 mg PO BID 10 caps 0RF 5 days Coding Level of Care Code Est Pt Level 3 (47793) Diagnoses Thickened endometrium R93.89 UTI (urinary tract infection) N39.0
== END 2025-01-16 09:39 | disposition home or self-care (01) ==
LOC: HO.HWS 09:17
PROVIDERS: PCP Internal Medicine; Visit Provider Obstetrics & Gynecology
DX: R93.89 Abnormal findings on diagnostic imaging of other specified body structures (principal); N39.0 Urinary tract infection, site not specified
CPT/HCPCS: 99213

== ENCOUNTER 2025-01-16 09:17 | Outpatient (REF) | payer BC, SELFPAY | END 2025-01-16 09:18 | disposition home or self-care (01) | LOC: HO.LNP 09:17 | PROVIDERS: PCP Internal Medicine; Visit Provider Obstetrics & Gynecology | DX: R93.89 Abnormal findings on diagnostic imaging of other specified body structures (principal); N39.0 Urinary tract infection, site not specified | CPT/HCPCS: 81002; 87086; 87088; 87186 ==

== ENCOUNTER 2025-02-05 10:55 | Outpatient (AMB) | payer BC, SELFPAY ==
--- NOTE | 2025-02-05 11:22 | MHC.OFFVIS ---
Vital Signs 02/05/25 11:30 Height 5 ft 7 in Weight 186 lb BMI 29.1 BP 126/78 Intake Visit Reasons: urine dip Records Custodian Required: No Information Interpreted: non-clinical & clinical Accompanied by: Self / Same As Patient Allergies Sulfa (Sulfonamide Antibiotics) (SULFA (SULFONAMIDE ANTIBIOTICS)) Allergy (Severe, Verified 02/05/25 11:36) rash/facial swelling & redness/difficulty breathing Post menopausal: Yes HPI Comments Details: Presenting for repeat urine dip. Last visit the patient had UTI symptoms urine dip showed microscopic hematuria, urine culture grew E coli sensitive to nitrofurantoin, the patient was prescribed nitrofurantoin 100 mg p.o. b.i.d. for 5 days, feeling better with no more symptoms PFSH Medical History Cervical polyp Hypothyroidism History of adenomatous polyp of colon History of postoperative nausea and vomiting GERD (gastroesophageal reflux disease) COVID-19 vaccine administered History of COVID-19 Thyroid disease Tubular adenoma Hyperlipidemia Surgical History H/O umbilical hernia repair H/O colonoscopy History of cholecystectomy Family History Father Diabetes Mother Pancreatic cancer Brother No problems noted. Son No problems noted. 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 Instructions given to patient to call if symptoms recur. All questions answered, the patient verbalized understanding Coding Level of Care Code Est Pt Level 3 (08415) Diagnoses UTI (urinary tract infection) N39.0
[2025-02-05 11:30] VITALS: BP 126/78; BMI 29.1
== END 2025-02-05 11:36 | disposition home or self-care (01) ==
LOC: HO.HWS 10:55
PROVIDERS: PCP Internal Medicine; Visit Provider Obstetrics & Gynecology
DX: N39.0 Urinary tract infection, site not specified (principal)
CPT/HCPCS: 99213

== ENCOUNTER → 2025-02-05 10:55 | Outpatient (BNVA) | payer BC, SELFPAY | PROVIDERS: PCP Internal Medicine; Visit Provider Obstetrics & Gynecology | DX: N39.0 Urinary tract infection, site not specified (principal) | CPT/HCPCS: 81002 ==

== ENCOUNTER 2025-04-10 06:56 | Outpatient (REF) | payer BC, SELFPAY ==
[2025-04-10 07:48] LABS: Alanine Aminotransferase 15 U/L (0-31); Albumin Level 4.5 g/dL (3.5-5.0); Alkaline Phosphatase 45 U/L (39-117); Anion Gap 9 (12-20); Aspartate Amino Transferase 22 U/L (5-31); Blood Urea Nitrogen 24 mg/dL (9-16); Calcium 9.6 mg/dL (8.4-10.2); Carbon Dioxide 26 mmol/L (22-29); Chloride 111 mmol/L (96-108); Cholesterol 170 mg/dL (<200); Estimated Glomerular Filt Rate > 60; HDL Cholesterol 54 mg/dL (>40); Potassium 4.3 mmol/L (3.3-5.1); Sodium 142 mmol/L (135-145); Total Protein 6.9 g/dL (6.5-8.0); Triglycerides 129 mg/dL (<150)
[2025-04-10 07:53] LABS: Thyroid Stimulating Hormone 2.02 uIU/mL (0.32-4.0)
== END 2025-04-10 06:57 | disposition home or self-care (01) ==
LOC: HO.LAB 06:56
PROVIDERS: PCP Internal Medicine; Visit Provider Internal Medicine
DX: E78.5 Hyperlipidemia, unspecified (principal); E03.9 Hypothyroidism, unspecified
CPT/HCPCS: 36415; 80053; 80061; 84443

== ENCOUNTER 2025-04-15 07:28 | Outpatient (AMB) | payer BC, SELFPAY ==
[2025-04-15 07:35] VITALS: BP 128/78; PULSE 73; O2SAT 99; BMI 29.4
--- NOTE | 2025-04-15 07:35 | A.OFFPC_ITS ---
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 Her chronic conditions include hypothyroidism treated with levothyroxine 137 mcg and hypercholesterolemia treated with atorvastatin 20 mg. She has an allergy to sulfa, which causes a rash. Past surgical history includes an umbilical hernia repair at age 7 and a cholecystectomy. Approximately a while ago, the patient developed severe upper back pain and muscle spasms after physical exertion. At that time, she was seen at an urgent care, diagnosed with a muscle issue, and given muscle relaxers. She continues to experience intermittent, severe spasms that can awaken her from sleep, with one recent episode lasting 10 days. She finds relief with pressure and massage and uses heat and a TENS unit at home, but she does not wish to take muscle relaxers. Her family history is significant for a father with diabetes and a mother who from pancreatic cancer at age 58. Socially, she is a former smoker and drinks beer a few times a month. Recent lab work showed improvement in her blood sugar from 101 to 93, with normal cholesterol, thyroid, kidney, and liver function. The patient is up to date with her influenza vaccine, which was administered today, as well as her mammogram and Pap smear. Her next colonoscopy is due in 2025. The patient declined a tetanus vaccine. [facility] Medical History Cervical polyp Hypothyroidism History of adenomatous polyp of colon History of postoperative nausea and vomiting GERD (gastroesophageal reflux disease) COVID-19 vaccine administered History of COVID-19 Thyroid disease Tubular adenoma Hyperlipidemia Surgical History H/O umbilical hernia repair H/O colonoscopy History of cholecystectomy Family History Father Diabetes Mother Pancreatic cancer Brother No problems noted. Son No problems noted. 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 1. Little interest or pleasure in doing things: not at all 2. Feeling down, depressed, or hopeless: not at all 3. Trouble falling or staying asleep, or sleeping too much: not at all 4. Feeling tired or having little energy: not at all 5. Poor appetite or overeating: not at all 6. Feeling bad about yourself - or that you are a failure or have let yourself or your family down: not at all 7. Trouble concentrating on things, such as reading the newspaper or watching television: not at all 8. Moving or speaking so slowly that other people could have noticed. Or the opposite - being so fidgety or restless that you have been moving around a lot more than usual: not at all 9. Thoughts that you would be better off or of hurting yourself in some way: not at all Total score: 0 Depression Screening Interpretation: Negative Depression Screening Done: Yes 24191 - PHQ-9 Billing: Yes Source: Developed by Drs. Homer Golden, Coretta Geronimo, Ward Florez and colleagues, with an educational bryn from [employer]. Thrive Questionnaire Date Thrive assessed: 09/30/24 I am a: Patient What is your living situation today?: I have a steady place to live Within the past 12 months, did the food you bought not last and you didn't have the money to get more?: Never true Within the past 12 months, did you worry whether your food would run out before you got money to buy more?: Never true Do you have trouble paying for medicines?: No Do you have trouble getting transportation to medical appointments?: No Do you have trouble paying your heating and electricity bill?: No Do you have trouble taking care of your child, family member or friend?: No Do you have trouble with day-to-day activities such as bathing, preparing meals, shopping, managing finances, etc.?: No Are you currently unemployed and looking for a job?: No Are you interested in more education?: No Please select the resources that you would like help with: None Currently or been in a relationship where the following occur: No concerns reported THRIVE Score: 0 AUDIT C Alcohol Use Questionnaire (AUDIT-C) 1. How often do you have a drink containing alcohol?: 2-4 times a month 2. How many drinks containing alcohol do you have on a typical day when you are drinking?: 1 or 2 3. How often do you have six or more drinks on one occasion?: Never Total Score: 2 ALEX-7 AMB Questionnaire ALEX-7 Date ALEX - 7 assessed: 10/07/24 Source: Developed by Drs. Homer Golden, Coretta Geronimo, Ward Florez and colleagues, with an educational bryn from [employer]. Review of Systems Const All systems reviewed & are unremarkable except as noted in HPI and below Card Denies chest pain at rest, Denies chest pain with activity, Denies edema, Denies irregular heart rhythm, Denies claudication, Denies dyspnea, Denies dyspnea on exertion, Denies orthopnea, Denies paroxysmal nocturnal dyspnea and Denies slow heart rate Resp Denies cough, Denies dyspnea and Denies dyspnea on exertion GI Denies abdominal pain, Denies change in bowel habits, Denies excessive flatus, Denies nausea and Denies vomiting Physical exam (Primary Care) Vital Signs: Last Vital Signs Pulse 73 04/15/25 07:35 BP 128/78 04/15/25 07:35 Pulse Ox 99 04/15/25 07:35 Oxygen Delivery Method Room Air 04/15/25 07:35 BMI result Body Mass Index 29.4 Tobacco/Smoking Status: Tobacco use Status Tobacco use date assessed 10/07/24 04/15/25 07:40 Patient Tobacco Use Status Former Tobacco user 04/15/25 07:52 Tobacco use type Cigarette 04/15/25 07:52 e-Cigarette/Vaping Use Never Used 04/15/25 07:52 PHQ-9: PHQ-9 Score PHQ-9: Total score 0 04/15/25 07:50 Depression Screening Interpretation: Negative Thrive Assessment: Date of Thrive Assessment Date Thrive assessed 09/30/24 04/15/25 07:40 Currently or been in a relationship where the following occur: No concerns reported [facility] Head: Yes normal to inspection, Yes normocephalic and Yes atraumatic Ears: external ears normal Eyes General: appearance normal, both eyes and all related structures Eyelids: Yes eyelids normal Conjunctivae: conjunctivae normal Neck Neck: Yes normal visual inspection and Yes supple Resp Effort & Inspection: normal respiratory effort Auscultation: clear to auscultation bilaterally Cardio Jugular venous distension: no JVD Rate: regular rate Rhythm: regular rhythm Heart sounds: S1 normal heart sound present and S2 normal heart sound present GI Inspection: Yes normal to inspection Palpation (GI): Soft to palpation and nontender Auscultation: normal bowel sounds Skin General skin exam: no rashes or lesions noted Neuro General: no focal motor deficits Extrem General: Yes full ROM Psych Appearance: grossly normal Office Procedures Flu Questionnaire Does the patient have a severe egg allergy?: No Does the patient have severe life threatening allergies?: No Does the patient have a fever or illness today?: No Has the patient ever had Guillain-Bradford Syndrome?: No Has the patient ever had any past reaction to a flu shot?: No Immunizations Fluarix [id number] (PF) 45 mcg (15 mcg x 3)/0.5 mL IM syringe Performing Provider: Aracelis Epps MD [facility] Administered by: Lakeisha Marin CMA on 04/15/25 07:41 Dose Route Admin Location Dispensed Lot Number Expiration Date [facility] 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 0.5 mL IM Left Deltoid 0.5 mL [id number] 11/25/25 [id number] [facility] VIS Given Date VIS Provided VIS Publication Date 04/15/25 Single Vaccine 24 Eligibility Eligibility Date Funding Source Not [facility] Eligible 04/15/25 Private Coding Level of Care Code Est Pt Prev Care 40-64y(30046) Diagnoses Physical exam Z00.00 Additional Codes PHQ-9 - 61218 - PHQ-9 Billing: Yes ([id number]) Time Spent (min) 30 Assessment & Plan Assessment & Plan (1) Physical exam: Code(s): Z00.00 - Encounter for general adult medical examination without abnormal findings Category: Medical Plan Repeat in a year. Continue yearly mammograms. Repeat TSH in 6 months. Colonoscopy due next year. Orders: Orders Influenza [id number] Immunization Today Z23 - Encounter for immunization
== END 2025-04-15 07:58 | disposition home or self-care (01) ==
LOC: HO.HMCH 07:28
PROVIDERS: PCP Internal Medicine; Visit Provider Internal Medicine
DX: Z23 Encounter for immunization (principal); Z00.00 Encounter for general adult medical examination without abnormal findings

== ENCOUNTER → 2025-04-15 07:28 | Outpatient (BNVA) | payer BC, SELFPAY | PROVIDERS: PCP Internal Medicine; Visit Provider Internal Medicine | DX: Z00.00 Encounter for general adult medical examination without abnormal findings (principal); Z23 Encounter for immunization | CPT/HCPCS: 90471; 90656; 96127 ==

== ENCOUNTER 2025-04-16 13:19 | Outpatient (AMB) | payer BC, SELFPAY ==
[2025-04-16 13:44] VITALS: BP 144/82; PULSE 66; TEMP 36.2; O2SAT 97; BMI 29.3
--- NOTE | 2025-04-16 13:44 | MHC.PC.OV ---
Vital Signs 04/16/25 13:44 Height 5 ft 7 in Weight 187 lb BMI 29.3 BP 144/82 H Blood Pressure Location Lt brachial Position Sitting Pulse 66 Pulse Source Pulse Oximeter Temp 97.1 F Temp Source Temporal Artery Scan Pulse Oximetry (%) 97 Oxygen Delivery Method Room Air Intake Visit Reasons: Possible Uti Allergies Sulfa (Sulfonamide Antibiotics) (SULFA (SULFONAMIDE ANTIBIOTICS)) Allergy (Severe, Verified 04/16/25 13:49) rash/facial swelling & redness/difficulty breathing Tobacco use date assessed: 10/07/24 Dental Screening Dental Screen Date: 10/07/24 HPI HPI Comments History of Present Illness Details The patient is a 59-year-old female presenting with urinary frequency and dysuria since yesterday afternoon. She also noted very light, spotty blood when wiping on two occasions yesterday, but has not seen any blood today. The patient denies fever, chills, vomiting, constipation, or black stools. She does mention a feeling of wanting to vomit after urination, but has been able to eat normally. The patient had a previous UTI in December 2024. Past medical history is significant for colonic polyps found on a colonoscopy four years ago, with a history of internal hemorrhoids also noted on that report. Her next colonoscopy is due next year, and she is compliant with screenings. The patient is postmenopausal, denies a history of diabetes, and reports a sulfa drug allergy. Her medications include atorvastatin and lorazepam. [facility], [facility] Medical History Cervical polyp Hypothyroidism History of adenomatous polyp of colon History of postoperative nausea and vomiting GERD (gastroesophageal reflux disease) COVID-19 vaccine administered History of COVID-19 Thyroid disease Tubular adenoma Hyperlipidemia Surgical History H/O umbilical hernia repair H/O colonoscopy History of cholecystectomy Family History Father Diabetes Mother Pancreatic cancer Brother No problems noted. Son No problems noted. 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 Current occupational exposures/hazards: No Cognitive needs: No Hearing needs: No Vision needs: Yes Questionnaire Thrive Questionnaire Date Thrive assessed: 09/30/24 I am a: Patient What is your living situation today?: I have a steady place to live Within the past 12 months, did the food you bought not last and you didn't have the money to get more?: Never true Within the past 12 months, did you worry whether your food would run out before you got money to buy more?: Never true Do you have trouble paying for medicines?: No Do you have trouble getting transportation to medical appointments?: No Do you have trouble paying your heating and electricity bill?: No Do you have trouble taking care of your child, family member or friend?: No Do you have trouble with day-to-day activities such as bathing, preparing meals, shopping, managing finances, etc.?: No Are you currently unemployed and looking for a job?: No Are you interested in more education?: No Please select the resources that you would like help with: None Currently or been in a relationship where the following occur: No concerns reported THRIVE Score: 0 ALEX-7 AMB Questionnaire ALEX-7 Date ALEX - 7 assessed: 10/07/24 Source: Developed by Drs. Homer Golden, Coretta Geronimo, Ward Florez and colleagues, with an educational bryn from [employer]. Physical exam (Primary Care) Vital Signs: Last Vital Signs Temp 97.1 F 04/16/25 13:44 Pulse 66 04/16/25 13:44 BP 144/82 H 04/16/25 13:44 Pulse Ox 97 04/16/25 13:44 Oxygen Delivery Method Room Air 04/16/25 13:44 General: Well-appearing, alert, oriented ?3, in no acute distress. Cardiovascular: RRR, S1-S2 appreciated, no murmurs, rubs or gallops. Respiratory: Lungs clear to auscultation bilaterally, no wheezes, rales or rhonchi. Abdomen: Soft, nontender, nondistended. Normoactive bowel sounds. No CVA tenderness BMI result Body Mass Index 29.3 Tobacco/Smoking Status: Tobacco use Status Tobacco use date assessed 10/07/24 04/16/25 13:49 Patient Tobacco Use Status Former Tobacco user 04/16/25 13:49 Tobacco use type Cigarette 04/16/25 13:49 e-Cigarette/Vaping Use Never Used 04/16/25 13:49 Thrive Assessment: Date of Thrive Assessment Date Thrive assessed 09/30/24 04/16/25 13:49 Currently or been in a relationship where the following occur: No concerns reported Results AMB Urinalysis, Automated UA Leukoctes 15 Shawna/uL Last Edit by Caitlin Dhaliwal CMA on 04/16/25 13:58 UA Nitrite Positive Last Edit by Caitlin Dhaliwal CMA on 04/16/25 13:58 UA Urobilinogen 0.2 mg/dL Last Edit by Caitlin Dhaliwal CMA on 04/16/25 13:58 UA Protein 15 mg/dL Last Edit by Caitlin Dhaliwal CMA on 04/16/25 13:58 UA pH 6.0 Last Edit by Caitlin Dhaliwal CMA on 04/16/25 13:58 UA Blood 25 Brown/uL Last Edit by Caitlin Dhaliwal CMA on 04/16/25 13:58 1+ Caitlin Dhaliwal 04/16/25 13:58 UA Specific Buford 1.025 Last Edit by Caitlin Dhaliwal CMA on 04/16/25 13:58 UA Ketone Negative Last Edit by Caitlin Dhaliwal CMA on 04/16/25 13:58 UA Bilirubin 0 mg/dL Last Edit by Caitlin Dhaliwal CMA on 04/16/25 13:58 UA Glucose 0 mg/dL Last Edit by Caitlin Dhaliwal CMA on 04/16/25 13:58 Results Reviewed Results Reviewed: Laboratory Last Values Urine pH (Auto) 6.0 04/16/25 13:53 Specific Buford (Auto) 1.025 04/16/25 13:53 Urine Protein (Auto) 15 mg/dL H 04/16/25 13:53 Glucose (UA)(Auto) 0 mg/dL 04/16/25 13:53 Urine Ketones (Auto) Negative 04/16/25 13:53 Urine Blood (Auto) 25 Brown/uL H* 04/16/25 13:53 Urine Nitrite (Auto) Positive A* 04/16/25 13:53 Urine Bilirubin (Auto) 0 mg/dL 04/16/25 13:53 Urine Urobilinogen (Auto) 0.2 mg/dL 04/16/25 13:53 Leukocyte Esterase (Auto) 15 Shawna/uL H 04/16/25 13:53 Coding Level of Care Code Est Pt Level 3 (67855) Diagnoses Increased urinary frequency R35.0 Assessment & Plan Assessment & Plan (1) Increased urinary frequency: Code(s): R35.0 - Frequency of micturition Plan: Patient presenting with increased urinary frequency and dysuria without fever, chills, nausea or vomiting or CVA tenderness. She has a history of UTI in December 2024. She has some allergy. Urine dipstick results in clinic consistent with the UTI. We will send out for urine culture. Start Macrobid 100 mg twice a day for 5 days Orders: Orders AMB Urinalysis Automated Today Z13.9 - Encounter for screening, unspecified Urine Culture Today N39.0 - Urinary tract infection, site not specified Medications: New nitrofurantoin macrocrystal must administer with a meal/food 100 mg PO BID 10 caps 0RF UTI 5 days
--- OUTSIDE RECORDS SUMMARY | 2025-04-17 01:15 | XMS_ITS | Patient Health Record ---
Author [facility] f[facility]er[facility] [place] Address [address] [address] Care Team Providers Care Cane Pusher Name Role Phone Farhat STRINGER, Irvin Primary Care Provider Raysa Qureshi Unavailable [phone] Allergies Allergen (clinical drug ingredient) Drug/Non Drug Allergy documented on EMR Reaction Allergy Type Onset Date Status sulfamethoxazole / trimethoprim Bactrim Sulfa drugs Drug Allergy Active Reason For Referral No Information Medications Medication SIG (Take, Route, Frequency, Duration) Notes Start Date End Date Status Levothyroxine Sodium 150 MCG TK 1 T PO O NCE DAILY Oral; Duration: 30 Active Social History Tobacco Use: Social History Observation Description Date Details (start date - stop date) Former Smoker NA - NA Tobacco Use/Smoking Question Answer Notes Are you a: former smoker When did you stop smoking? 10+years Additional Findings: Tobacco Non-User Current no n-smoker Alcohol Screen Question Answer Notes Did you have a drink containing alcohol in the p ast year? Yes Points 0 Interpretation Negative Tobacco use other than smoking: Question Answer Notes Are you an other tobacco user? No Problems Problem Type SNOMED Code ICD Code Onset Dates Problem Status W/U Status Risk Notes Problem Acquired hammer toe of right foot ([id number]) Hammer toe of right foot (M20.41) Active confirmed Plan Of Treatment Pending Test Test Name Order Date X ray : Foot, right 3V 02/08/2019 Insurance Providers Payer Name Payer Address Payer Phone Subscriber Number Group Number Insured Name Patient Relationship to Insured Coverage Start Date Coverage End Date [employer] [address] NANCY PENNY, KELLE [address] [id number] GABY GONG Spouse - patient is the spouse of the insured Medical (General) History Medical History History ICD Code Chicken pox Thyroid Disorder Surgical History Surgery Date(Month/Year) cholecystectomy 1996
== END 2025-04-16 14:49 | disposition home or self-care (01) ==
LOC: HO.HMCH 13:20
PROVIDERS: PCP Internal Medicine; Visit Provider Student in an Organized Health Care Education/Training Program
DX: R35.0 Frequency of micturition (principal); Z13.9 Encounter for screening, unspecified

== ENCOUNTER 2025-04-16 13:19 | Outpatient (REF) | payer BC, SELFPAY | END 2025-04-16 13:20 | disposition home or self-care (01) | LOC: HO.LNP 13:19 | PROVIDERS: PCP Internal Medicine; Visit Provider Student in an Organized Health Care Education/Training Program | DX: R35.0 Frequency of micturition (principal); N39.0 Urinary tract infection, site not specified; R30.0 Dysuria | CPT/HCPCS: 81003; 87086; 87088; 87186 ==